=== PATIENT | female | born 1930 | race Caucasian/White ===

== ENCOUNTER 2017-05-31 05:15 | Inpatient (IN) | payer MEDICARE, OTHER ==
[2017-05-31] MEDS ORDERED: MORPHINE SULFATE 10 MG/ML SYRINGE IM STA (06:20)
--- NOTE | 2017-05-31 06:23 | ED ---
General Adult HPI - General Source: patient, EMS, RN notes reviewed Mode of arrival: EMS Limitations: no limitations <Hawk Juarez - Last Filed: 05/31/17 06:20> <Tomas Brannon - Last Filed: 05/31/17 08:45> - General Chief complaint: Extremity Problem,Nontraumatic Stated complaint: wrist and hip pain Time Seen by Provider: 05/31/17 06:05 - History of Present Illness Initial comments: Patient is a pleasant 87-year-old female presenting to the emergency department with leg and wrist pain. Patient states she has had right wrist pain for well over a month. Patient states she has had left leg pain for several days. Patient does have a history of chronic back pain and has had 2 back surgeries. Patient does not walk. Patient states discomfort starts the left sciatic region and does extend to the leg. Discomfort increases with movement. No leg swelling. Patient did see her doctor who attributed her symptoms to gout. Patient states she does have a history of gout. (Hawk Juarez) - Related Data Home Medications Medication Instructions Recorded Confirmed Alendronate Sodium [Fosamax] 70 mg PO WEEKLY 03/04/14 07/01/15 Aspirin 81 mg PO DAILY 03/04/14 07/01/15 Calcium 1 tab PO DAILY 03/04/14 07/01/15 Clopidogrel [Plavix] 75 mg PO DAILY 03/04/14 07/01/15 Docusate Sodium [Stool Softener] 100 mg PO DAILY 03/04/14 07/01/15 Furosemide [Lasix] 40 mg PO BID 03/04/14 07/01/15 Gabapentin [Neurontin] 600 mg PO BID 03/04/14 07/01/15 Hydrocodone/Acetaminophen [Vicodin 1 each PO Q8HR PRN 03/04/14 07/01/15 Es 7.5-300 mg Tablet] Nitroglycerin Sl Tabs [Nitrostat] 0.4 mg SUBLINGUAL Q5M PRN 03/04/14 07/01/15 Potassium Chloride [Potassium 20 meq PO DAILY 03/04/14 07/01/15 Chloride ER] Ramelteon [Rozerem] 8 mg PO HS PRN 03/04/14 07/01/15 Ranitidine HCl 150 mg PO BID 03/04/14 07/01/15 Simvastatin [Zocor] 40 mg PO HS 03/04/14 07/01/15 Spironolactone [Aldactone] 25 mg PO DAILY 03/04/14 07/01/15 Temazepam [Restoril] 7.5 mg PO HS PRN 03/04/14 07/01/15 rOPINIRole HCL [Requip] 4 mg PO HS 03/04/14 07/01/15 Allergies Allergy/AdvReac Type Severity Reaction Status Date / Time Iodinated Contrast- Oral and Allergy Rash/Hives Verified 07/01/15 10:00 IV Dye [Iodinated Contrast Media - IV Dye] Sulfa (Sulfonamide Allergy Rash/Hives Verified 07/01/15 10:00 Antibiotics) Review of Systems ROS Other: All systems not noted in ROS Statement are negative. Constitutional: Denies: fever Eyes: Denies: eye pain ENT: Denies: ear pain Respiratory: Denies: cough Cardiovascular: Denies: chest pain Endocrine: Denies: fatigue Gastrointestinal: Denies: abdominal pain Genitourinary: Denies: dysuria Musculoskeletal: Reports: back pain, arthralgia Skin: Denies: rash Neurological: Denies: weakness <Hawk Juarez - Last Filed: 05/31/17 06:20> ROS Other: All systems not noted in ROS Statement are negative. <Tomas Brannon - Last Filed: 05/31/17 08:45> ROS Statement: Those systems with pertinent positive or pertinent negative responses have been documented in the HPI. Past Medical History Past Medical History: Chest Pain / Angina, Heart Failure, Hyperlipidemia, Hypertension, Myocardial Infarction ([place]), Skin Disorder, Vascular Disorder Additional Past Medical History / Comment(s): wound lt leg, arthritis, gout. Last Myocardial Infarction Date:: 2006 History of Any Multi-Drug Resistant Organisms: MRSA Date of last positivie culture/infection: 03/04/2014 MDRO Source:: Right Leg Past Surgical History: Back Surgery, Bladder Surgery, Heart Catheterization With Stent, Hysterectomy Past Anesthesia/Blood Transfusion Reactions: No Reported Reaction Date of Last Stent Placement:: 2006 Past Psychological History: No Psychological Hx Reported Smoking Status: Never smoker Past Alcohol Use History: None Reported Past Drug Use History: None Reported - Past Family History Mother Family Medical History: Hypertension, Liver Disease Father Family Medical History: Diabetes Mellitus Brother(s) Family Medical History: Cancer <Hawk Juarez - Last Filed: 05/31/17 06:20> General Exam Limitations: no limitations General appearance: alert, in no apparent distress Head exam: Present: atraumatic Eye exam: Present: normal appearance, PERRL ENT exam: Present: normal oropharynx Neck exam: Present: normal inspection Respiratory exam: Present: normal lung sounds bilaterally Cardiovascular Exam: Present: regular rate, normal rhythm Expanded Peripheral pulses: 2+: Radial (R), Radial (L), Dorsalis Pedis (R), Dorsalis Pedis (L) GI/Abdominal exam: Present: soft. Absent: tenderness Extremities exam: Present: other (Right foot are wrist with mildly tender cystic lesion subcutaneously. Left leg without tenderness. ) Back exam: Present: tenderness (Left sciatic region) Neurological exam: Present: alert. Absent: motor sensory deficit Psychiatric exam: Present: normal affect, normal mood Skin exam: Absent: rash (No rash on areas of complaints) <Hawk Juarez - Last Filed: 05/31/17 06:20> Medical Decision Making <Hawk Juarez - Last Filed: 05/31/17 06:20> - Lab Data Result diagrams: 05/31/17 08:06 05/31/17 08:06 <Tomas Brannon - Last Filed: 05/31/17 08:45> - Medical Decision Making 87-year-old female presents with low back and left hip pain. Patient was reevaluated times signed out. She did have continued pain. X-rays were pending. She reports sudden onset of pain when transferring from her wheelchair to her wheelchair. She does not inability blood transfers without assistance. X-ray shows concern for bilateral sacral fractures. There is significant generation of the left hip as well with no acute fracture. Case is discussed with orthopedic surgery, they recommended medical admission and will be placed on consult. Diagnosis: Bilateral sacral fracture (Tomas Brannon) - Lab Data Lab Results 05/31/17 05/31/17 Range/Units 08:06 08:06 WBC 6.9 (3.8-10.6) k/uL RBC 3.17 L (3.80-5.40) m/uL Hgb 9.8 L (11.4-16.0) gm/dL Hct 30.8 L (34.0-46.0) % MCV 97.3 (80.0-100.0) fL MCH 30.9 (25.0-35.0) pg MCHC 31.8 (31.0-37.0) g/dL RDW 15.3 (11.5-15.5) % Plt Count 223 (150-450) k/uL Neutrophils % 75 % Lymphocytes % 13 % Monocytes % 6 % Eosinophils % 3 % Basophils % 1 % Neutrophils # 5.2 (1.3-7.7) k/uL Lymphocytes # 0.9 L (1.0-4.8) k/uL Monocytes # 0.4 (0-1.0) k/uL Eosinophils # 0.2 (0-0.7) k/uL Basophils # 0.0 (0-0.2) k/uL Sodium 143 (137-145) mmol/L Potassium 3.5 (3.5-5.1) mmol/L Chloride 105 (98-107) mmol/L Carbon Dioxide 29 (22-30) mmol/L Anion Gap 9 mmol/L BUN 39 H (7-17) mg/dL Creatinine 1.60 H (0.52-1.04) mg/dL Est GFR (MDRD) Af Amer 37 (>60 ml/min/1.73 sqM) Est GFR (MDRD) Non-Af 31 (>60 ml/min/1.73 sqM) Glucose 91 (74-99) mg/dL Calcium 9.0 (8.4-10.2) mg/dL Total Bilirubin 0.4 (0.2-1.3) mg/dL AST 18 (14-36) U/L ALT 23 (9-52) U/L Alkaline Phosphatase 73 (38-126) U/L Total Protein 6.6 (6.3-8.2) g/dL Albumin 3.3 L (3.5-5.0) g/dL Disposition <Hawk Juarez - Last Filed: 05/31/17 06:20> Decision to Admit Reason: Admit from EC Decision Date: 05/31/17 Decision Time: 08:15 <Tomas Brannon - Last Filed: 05/31/17 08:45> Clinical Impression: Sacral fracture Disposition: ADMITTED IP TO THIS [facility] Condition: Stable Referrals: Von Carter DO [Primary Care Provider] - 1-2 days
--- NOTE | 2017-05-31 07:05 | XR ---
EXAMINATION TYPE: XR lumbar spine 2 or 3V DATE OF EXAM: 05/31/2017 CLINICAL HISTORY: Lower back pain TECHNIQUE: Frontal, lateral, and oblique images of the lumbar spine are obtained. COMPARISON: 01/04/2011 FINDINGS: There is again postsurgical change at L4 and L5 with grade 1 anterolisthesis of L4 on L5, unchanged from the prior intervertebral disc cages noted at L5-S1. There are either 4 lumbar type darline tebral bodies or rudimentary ribs from L1. Grade 1 anterolisthesis of L3 on L4 is also unchanged from the prior exam. Severe atherosclerosis is seen of the abdominal aorta and its branches with ectasia of the abdominal aorta measuring up to 3.2 cm. Severe facet arthropathy is present at L2-L3 and L3-L4 as well as L5-S1 creating neural foraminal narrowing at L2-L3 and L3-L4. Slight downsloping of the T11 superior endpl ate is unchanged from the prior exam with endplate sclerosis. IMPRESSION: 1. No acute fracture or dislocation is seen in the lumbar spine. 2. Stable postsurgical changes of the lumbar spine. 3. Severe degenerative disc disease at L2-L3 and L3-L4 with resultant neural foraminal narrowing. 4. Grade 1 anterolisthesis of L3 on L4 and L4-L5, unchanged from the prior. 5. Abdominal aortic ectasia and severe atherosclerosis.
--- NOTE | 2017-05-31 07:08 | XR ---
EXAMINATION TYPE: XR wrist complete RT DATE OF EXAM: 05/31/2017 CLINICAL HISTORY: No known injury. Wrist pain. TECHNIQUE: Frontal, lateral and oblique images of the right wrist are obtained. COMPARISON: None FINDINGS: There is no acute fracture/dislocation evident in the right wrist. The overlying soft tiss ue appears unremarkable. Well-corticated ossicle versus osseous fragment is seen in the region of the triangular fibrocartilage distal to the ulnar styloid. Carpal carpal degenerative change is apprecia polly as severe sclerosis is seen between the distal pole of the scaphoid, trapezium and triquetrum. D egenerative changes also seen at the first carpometacarpal joint also demonstrated as sclerosis and j oint space narrowing. IMPRESSION: 1. There is no acute fracture or dislocation in the right wrist. 2. Moderate carpometacarpal and carpocarpal degenerative changes.
--- NOTE | 2017-05-31 07:08 | XR ---
EXAM: XR Sacrum and Coccyx, 2 or more Views CLINICAL HISTORY: Reason: Pain TECHNIQUE: Frontal and lateral views of the sacrum and coccyx. COMPARISON: No relevant prior studies available. FINDINGS: Sacrum/coccyx: Evidence of fracture involving the sacrum on the right and possibly also on the left. Vertebrae: Please refer to lumbar spine report in regards to lower lumbar spine findings. Soft tissues: Unremarkable. Other bones: The right femoral head is not well visualized and appears to be possibly diminished in size with degenerative changes of the hip. IMPRESSION: Evidence of fracture involving the sacrum on the right and possibly also on the left.
--- NOTE | 2017-05-31 07:59 | XR ---
EXAMINATION TYPE: XR Hip Complete LT DATE OF EXAM: 05/31/2017 CLINICAL HISTORY: Left hip pain without known injury. TECHNIQUE: AP and frogleg views of the left hip are obtained. COMPARISON: None. FINDINGS: There is extension destruction and osseous reabsorption of the left femoral head that may r elate to prior osteotomy or chronic change from arthrosis, infection, or denervation. The remaining f emoral neck appears situated within the acetabulum without dislocation. Remodeling of the acetabulum with ossific bodies in the joint space are noted. No acute fracture is identified. 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 Thi s could be chronic change from arthrosis, infection, or neuropathic joint versus postsurgical change. No gross acute finding.
[2017-05-31 08:15] LABS: Basophils % (A) 1 %; CH 31.4; CHCM 32.5; Eosinophils # (A) 0.2 k/uL (0-0.7); Eosinophils % (A) 3 %; HCT 30.8 % (34.0-46.0); HDW 2.26; HGB 9.8 gm/dL (11.4-16.0); Luc # (Auto) 0.16; Luc % (Auto) 2; Lymphocytes # (A) 0.9 k/uL (1.0-4.8); Lymphocytes % (A) 13 %; MCH 30.9 pg (25.0-35.0); MCHC 31.8 g/dL (31.0-37.0); MCV 97.3 fL (80.0-100.0); Mean Platelet Volume 7.8; Monocytes # (A) 0.4 k/uL (0-1.0); Monocytes % (A) 6 %; Neutrophils # (A) 5.2 k/uL (1.3-7.7); Neutrophils % (A) 75 %; RBC 3.17 m/uL (3.80-5.40); RDW 15.3 % (11.5-15.5); WBC 6.9 k/uL (3.8-10.6); WBC (Perox) 6.56
[2017-05-31 08:26] LABS: Potassium 3.5 mmol/L (3.5-5.1); Total Bilirubin 0.4 mg/dL (0.2-1.3); Total Protein 6.6 g/dL (6.3-8.2)
[2017-05-31] MEDS ORDERED: oxyCODONE-APAP 5-325MG 1 EACH TAB PO PRN (08:33)
[2017-05-31] MEDS ORDERED: ONDANSETRON 4 MG/2 ML VIAL IVP PRN (08:39)
[2017-05-31] MEDS ORDERED: NALOXONE 0.4 MG/ML 1 ML VIAL IV PRN (08:42)
[2017-05-31] MEDS ORDERED: ENOXAPARIN 40 MG/0.4 ML SYRINGE SQ SCH (09:15)
[2017-05-31] MEDS: SODIUM CHLORIDE 0.9% 1,000 ML IV SCH (09:16)
[2017-05-31 09:18] LABS: INR 1.1 (<1.2); Prothrombin Time 11.3 sec (9.0-12.0)
[2017-05-31 09:21] LABS: Appearance,Urine Cloudy (Clear); Bacteria,Urine Many /hpf; Bilirubin,Urine Negative (Negative); Glucose,Urine (UA) Negative (Negative); Ketones,Urine Negative (Negative); Leukocyte Esterase,Urine Large (Negative); Nitrite,Urine Positive (Negative); PH, Urine 5.5 (5.0-8.0); Particle Count 9496; Protein,Urine Negative (Negative); RBC,Urine 1 /hpf (0-5); Specific Gravity,Urine 1.014 (1.001-1.035); Squamous Epithelial Cell,Urine 1 /hpf (0-4); UA Billing (MACRO vs. MICRO) MICRO; Urobilinogen,Urine <2.0 mg/dL (<2.0); WBC,Urine 17 /hpf (0-5)
[2017-05-31] MEDS ORDERED: NITROGLYCERIN SL TABS 0.4 MG TAB SUBLINGUAL PRN (12:10)
--- NOTE | 2017-05-31 12:43 | P.HPIM ---
History of Present Illness H&P Date: 05/31/17 Chief Complaint: left hip pain Patient is [id number] female with a past medical history of congestive heart failure, coronary artery disease status post stenting, and dyslipidemia who presented with complaints of left hip pain. She states that she has been having pain for several weeks. Yesterday she was trying to transfer into her wheelchair and was unable to her hip down on the floor and felt a pop. Today her pain was worse so she decided to present to the emergency department. She also has been complaining of right wrist pain for the last 2 weeks. Both the hips and wrist pain are worse with movement and better with rest. She has not tried anything at home that has helped. She is mostly in a wheel chair and transfers herself only. She does live alone. She has had some decreased appetite and weight loss. She also reports cold intolerance. She has not been sick or ill at all recently and has not had any changes in her medications. In the emergency department she underwent an extensive evaluation. Her initial vital signs were within normal limits. Laboratory analysis showed a slight anemia and elevated creatinine. She was given pain control started on IV fluids. She was admitted to the general medical floor for further monitoring and care. Orthopedic surgery was consulted. Review of Systems General: [no fever/chills], [no rigors], + weight loss, + decreased appetite Eyes: [No double vision], [no unusual blurry vision], [no loss of vision] ENT: [No rhinorrhea, congestion], [no trush] Cardiovascular: [No chest pain], [no palpitations], [no syncope], [no edema], [ Noo paroxysmal nocturnal dyspnea], [No dizziness] Pulmonary: [No shortness of breath], [no wheezing], [no cough], [hemoptysis] Abdominal: [No abdominal pain], [no constipation], [no diarrhea], [no vomiting] , [no nausea], [no distention] Genitourinary: [No dysuria], [no urinary frequency], [ no hematuria], [no unusual discharge/odor] Neuro: [No unusual paresthesias], [no unusual paresis/paralysis], [no headache] Dermatologic: [No unusual rashes], [no unusual lesions], [no unusual changes in nails] Endocrinology: [No intolerance to heat/cold], [no excessive thirst],] [no unusual fatigue] Hematologic: [No unusual bruising or bleeding], [no unusual cervical lymphadenopathy] Psychiatric: [No changes in mood or behaviors], [no changes in sleep pattern] Musculoskeletal: + Left leg pain, + right wrist pain, + wheelchair-bound for 16 years Past Medical History Past Medical History: Coronary Artery Disease (CAD), Chest Pain / Angina, Heart Failure, GERD/Reflux, Hyperlipidemia, Myocardial Infarction ([place]), Osteoarthritis (OA), Renal Disease, Vascular Disorder Additional Past Medical History / Comment(s): Chronic back pain, DJD, gout, PVD , current and past ulcers to L/R lower legs, CKD, UTIs, PUD, RLS, past fractures to L shoulder, numbness/tingling bilateral feet/legs at times. Last Myocardial Infarction Date:: 2006 History of Any Multi-Drug Resistant Organisms: MRSA Date of last positivie culture/infection: 03/04/2014 MDRO Source:: Right Leg Past Surgical History: Back Surgery, Bladder Surgery, Heart Catheterization With Stent, Hysterectomy Additional Past Surgical History / Comment(s): Back surgery x2, bladder suspension, debridements L lower leg, cataract removal bilaterally, EGD/ colonoscopy. Past Anesthesia/Blood Transfusion Reactions: No Reported Reaction Date of Last Stent Placement:: 2006 Smoking Status: Never smoker Past Alcohol Use History: None Reported Past Drug Use History: None Reported - Past Family History Mother Family Medical History: Hypertension Father Family Medical History: Diabetes Mellitus Brother(s) Family Medical History: Cancer Medications and Allergies Home Medications Medication Instructions Recorded Confirmed Type Alendronate Sodium [Fosamax] 70 mg PO WEEKLY 03/04/14 05/31/17 History Aspirin 81 mg PO DAILY 03/04/14 05/31/17 History Docusate Sodium [Stool Softener] 100 - 200 mg PO HS PRN 03/04/14 05/31/17 History Gabapentin [Neurontin] 600 mg PO BID 03/04/14 05/31/17 History Nitroglycerin Sl Tabs [Nitrostat] 0.4 mg SUBLINGUAL Q5M PRN 03/04/14 05/31/17 History Ammonium Lactate Lotion 1 applic TOPICAL BID PRN 05/31/17 05/31/17 History [Lac-Hydrin 12% Lotion] Calcitriol [Rocaltrol] 0.25 mcg PO DAILY 05/31/17 05/31/17 History Cholecalciferol (Vitamin D3) 2,000 unit PO DAILY 05/31/17 05/31/17 History [Vitamin D3] Furosemide [Lasix] 40 mg PO DAILY@1500 05/31/17 05/31/17 History Furosemide [Lasix] 80 mg PO DAILY 05/31/17 05/31/17 History HYDROcodone/APAP 7.5-325MG [Poyntelle 1 tab PO TID PRN 05/31/17 05/31/17 History 7.5-325] Levothyroxine Sodium [Levoxyl] 25 mcg PO DAILY 05/31/17 05/31/17 History Potassium Chloride ER [K-Dur 10] 10 meq PO DAILY 05/31/17 05/31/17 History traMADol HCL [Ultram] 50 mg PO Q6HR PRN 05/31/17 05/31/17 History Allergies Allergy/AdvReac Type Severity Reaction Status Date / Time Iodinated Contrast- Oral and Allergy Rash/Hives Verified 05/31/17 08:58 IV Dye [Iodinated Contrast Media - IV Dye] Sulfa (Sulfonamide Allergy Rash/Hives Verified 05/31/17 08:58 Antibiotics) Physical Exam Osteopathic Statement: *. No significant issues noted on an osteopathic structural exam other than those noted in the History and Physical/Consult. Vitals: Vital Signs Temp Pulse Pulse Resp BP BP Pulse Ox 05/31/17 10:00 96.5 F L 63 16 105/59 98 05/31/17 09:00 71 18 132/59 96 05/31/17 07:01 64 16 128/58 96 05/31/17 05:17 97.7 F 73 15 134/62 97 Intake and Output 05/30/17 05/31/17 05/31/17 22:59 06:59 14:59 Other: Weight 72.575 kg General: non toxic, mild distress, appears at stated age, obese Derm: + Venous stasis changes bilateral lower extremities, +3 ulcers to lateral malleoli on the with dressing in place, no lesions, no ulcers, no unusual ecchymoses Head: atraumatic, normocephalic, symmetric Eyes: EOMI, no lid lag, anicteric sclera, pupils equal round reactive to light ENT: no post nasal drip, no thrush , nearest patent, no pharyngeal erythema Neck: No thyromegaly, no cervical lymphadenopathy, trachea midline, supple Mouth: no lip lesion, mucus membranes moist Cardiovascular: S1S2 reg, no murmur, + decreased posterior tibial pulses bilaterally, no edema , no JVD, no clubbing, no cyanosis, capillary refill less than 2 seconds Lungs: CTA bilateral, no rhonchi, no rales , no accessory muscle use Abdominal: soft, nontender to palpation, no guarding, no appreciable organomegaly, normal bowel sounds Ext: no gross muscle atrophy, muscle strength 5 out of 5 in bilateral upper extremities, 2-3 out of 5 in bilateral lower extremities, no pain to palpation of bilateral hips, no contractures, Neuro: CN II-XI grossly intact, light touch intact all 4 extremities, finger to nose within normal limits, Psych: Alert, oriented, appropriate affect Results CBC & Chem 7: 05/31/17 08:06 05/31/17 08:06 Labs: Abnormal Lab Results - Last 24 Hours (Table) 05/31/17 05/31/17 05/31/17 Range/Units 08:06 08:06 09:10 RBC 3.17 L (3.80-5.40) m/uL Hgb 9.8 L (11.4-16.0) gm/dL Hct 30.8 L (34.0-46.0) % Lymphocytes # 0.9 L (1.0-4.8) k/uL BUN 39 H (7-17) mg/dL Creatinine 1.60 H (0.52-1.04) mg/dL Albumin 3.3 L (3.5-5.0) g/dL Urine Appearance Cloudy H (Clear) Urine Blood Trace H (Negative) Urine Nitrite Positive H (Negative) Ur Leukocyte Esterase Large H (Negative) Urine WBC 17 H (0-5) /hpf Urine WBC Clumps Few H (None) /hpf Urine Bacteria Many H (None) /hpf Thrombosis Risk Factor Assmnt - DVT/VTE Prophylaxis DVT/VTE Prophylaxis: Pharmacologic Prophylaxis ordered - Choose All That Apply Any of the Below Risk Factors Present?: Yes Each Factor Represents 1 point: Medical pt on bed rest, Obesity (BMI >25) Other Risk Factors: Yes Each Risk Factor Represents 3 Points: Age 75 years or older Other congenital or acquired thrombophilia - If yes, enter type in comment: No Thrombosis Risk Factor Assessment Total Risk Factor Score: 5 Thrombosis Risk Factor Assessment Level: High Risk Assessment and Plan Plan: #Right sacral fracture-await orthopedic evaluation, pain control, bed rest until cleared by otyho, PT and OT once weightbearing status approved, suspect that patient will need to go to rehab to help with transfers. #Acute kidney injury on chronic kidney disease stage III-baseline creatinine appears to be 1.2, hold Lasix, gentle IV fluids, follow creatinine, additional nephrotoxic agents #Anemia, chronic-appears at baseline, follow CBC #Congestive heart failure, unknown ejection fraction-appears currently compensated, not chronically on beta mely or NORIS inhibitor and we'll not initiate, follow clinical status closely with Lasix being held and gentle IV fluids being given. #Hypothyroidism-continue Synthroid #Atherosclerotic coronary artery disease-continue aspirin, not chronically on statin therapy #Venous stasis ulcer of left lower extremity-wound care, frequent turns Surrogate decision-maker: Granddaughter Lexy CODE STATUS: Full DVT prophylaxis: Lovenox Discussed with: Patient, nursing, ER physician Anticipated discharge: 48-[address]: Rehabilitation A total of 45 minutes was spent on the care of this complex patient more than 50 % of the time was spent in counseling and care coordination.
[2017-05-31] MEDS: HYDROcodone/APAP 7.5-325MG 1 EACH TAB PO PRN (13:50)
[2017-05-31] MEDS: GABAPENTIN 300 MG CAP PO SCH (21:53)
[2017-05-31] MEDS: AMMONIUM LACTATE 12% LOTION 225 GM BTL TOPICAL PRN (23:18)
[2017-06-01] MEDS: LEVOTHYROXINE 25 MCG TAB PO SCH (06:11)
[2017-06-01] MEDS: SODIUM CHLORIDE 0.9% 1,000 ML IV SCH (06:11)
[2017-06-01] MEDS: HYDROcodone/APAP 7.5-325MG 1 EACH TAB PO PRN (06:11)
[2017-06-01 07:33] LABS: Basophils % (A) 0 %; CH 31.1; CHCM 31.8; Eosinophils # (A) 0.2 k/uL (0-0.7); Eosinophils % (A) 4 %; HCT 29.7 % (34.0-46.0); HDW 2.26; HGB 9.3 gm/dL (11.4-16.0); Luc # (Auto) 0.15; Luc % (Auto) 3; Lymphocytes # (A) 0.8 k/uL (1.0-4.8); Lymphocytes % (A) 13 %; MCH 30.7 pg (25.0-35.0); MCHC 31.3 g/dL (31.0-37.0); MCV 98.1 fL (80.0-100.0); Macrocytosis Slight; Mean Platelet Volume 7.3; Monocytes # (A) 0.6 k/uL (0-1.0); Monocytes % (A) 11 %; Neutrophils # (A) 3.9 k/uL (1.3-7.7); Neutrophils % (A) 70 %; RBC 3.03 m/uL (3.80-5.40); RDW 15.3 % (11.5-15.5); WBC 5.6 k/uL (3.8-10.6); WBC (Perox) 5.64
[2017-06-01 07:53] LABS: Calcium 8.4 mg/dL (8.4-10.2); Magnesium 1.9 mg/dL (1.6-2.3); Phosphorous 3.4 mg/dL (2.5-4.5); Potassium 3.7 mmol/L (3.5-5.1)
[2017-06-01] MEDS: GABAPENTIN 300 MG CAP PO SCH ×2 (09:13→22:03)
[2017-06-01] MEDS: CHOLECALCIFEROL 1,000 UNIT TAB PO SCH (09:13)
[2017-06-01] MEDS: ASPIRIN 81 MG CHEW PO SCH (09:13)
[2017-06-01] MEDS: ENOXAPARIN 30 MG/0.3 ML SYRINGE SQ SCH (09:14)
[2017-06-01] MEDS: CALCITRIOL 0.25 MCG CAP PO SCH (09:14)
[2017-06-01] MEDS: traMADol 50 MG TAB PO PRN (09:19)
--- NOTE | 2017-06-01 09:47 | XR ---
EXAMINATION TYPE: XR chest 1V portable DATE OF EXAM: 06/01/2017 COMPARISON: 02/02/2014 HISTORY: Pain TECHNIQUE: Single frontal view of the chest is obtained. FINDINGS: Marked deformity of the right shoulder is most likely the basis of previous arthropathy tr auma. Chronic appearing subluxation or dislocation Retrocardiac density noted which may related ectasia of the aorta. No pleural effusion, pneumothorax or overt failure. Right paratracheal fullness likely vascular. Related to patient rotation. IMPRESSION: 1. No definite acute process. Retrocardiac density most likely related to hiatal hernia rather than i nfiltrate short-term follow-up PA and lateral views of the chest could be obtained for confirmation.
--- NOTE | 2017-06-01 10:22 | P.CNOR ---
History of Present Illness - HPI Consult date: 06/01/17 Consult reason: fracture, low back pain History of present illness: The patient is a pleasant 87-year-old female who was transferring yesterday and her pop at her lower back. She is a nonambulator and uses an electric wheelchair. She is normally able to transfer on her own. She's been using a chair for several years. She says that the pain is primarily at her lower back toward her sacrum. She is not having any new changes in her lower extremities. She denies any fevers or chills. She says that she occasionally has some low back pain but this is somewhat different for her. She says she is not painful she is sitting or while in bed. But she has pain when she is trying to mobilize and transfer herself. Review of Systems As stated per HPI. She denies any new changes in the lower extremities. She has significant wound issues in vascular issues in her bilateral lower extremities for which she is getting at active wound care and treatment and lower extremity is. Apparently she's been advised to remain nonweightbearing on her bilateral lower extremity is due to her wounds. She normally uses an electric wheelchair but says she is normally able to transfer herself. Past Medical History Past Medical History: Coronary Artery Disease (CAD), Chest Pain / Angina, Heart Failure, GERD/Reflux, Hyperlipidemia, Myocardial Infarction (LA), Osteoarthritis (OA), Renal Disease, Vascular Disorder Additional Past Medical History / Comment(s): Chronic back pain, DJD, gout, PVD , current and past ulcers to L/R lower legs, CKD, UTIs, PUD, RLS, past fractures to L shoulder, numbness/tingling bilateral feet/legs at times. Last Myocardial Infarction Date:: 2006 History of Any Multi-Drug Resistant Organisms: MRSA Year Discovered:: 03/04/2014 MDRO Source:: Right Leg Past Surgical History: Back Surgery, Bladder Surgery, Heart Catheterization With Stent, Hysterectomy Additional Past Surgical History / Comment(s): Back surgery x2, bladder suspension, debridements L lower leg, cataract removal bilaterally, EGD/ colonoscopy. Past Anesthesia/Blood Transfusion Reactions: No Reported Reaction Date of Last Stent Placement:: 2006 Smoking Status: Never smoker Past Alcohol Use History: None Reported Past Drug Use History: None Reported - Past Family History Mother Family Medical History: Hypertension Father Family Medical History: Diabetes Mellitus Brother(s) Family Medical History: Cancer Medications and Allergies Home Medications Medication Instructions Recorded Confirmed Type Alendronate Sodium [Fosamax] 70 mg PO WEEKLY 03/04/14 05/31/17 History Aspirin 81 mg PO DAILY 03/04/14 05/31/17 History Docusate Sodium [Stool Softener] 100 - 200 mg PO HS PRN 03/04/14 05/31/17 History Gabapentin [Neurontin] 600 mg PO BID 03/04/14 05/31/17 History Nitroglycerin Sl Tabs [Nitrostat] 0.4 mg SUBLINGUAL Q5M PRN 03/04/14 05/31/17 History Ammonium Lactate Lotion 1 applic TOPICAL BID PRN 05/31/17 05/31/17 History [Lac-Hydrin 12% Lotion] Calcitriol [Rocaltrol] 0.25 mcg PO DAILY 05/31/17 05/31/17 History Cholecalciferol (Vitamin D3) 2,000 unit PO DAILY 05/31/17 05/31/17 History [Vitamin D3] Furosemide [Lasix] 40 mg PO DAILY@1500 05/31/17 05/31/17 History Furosemide [Lasix] 80 mg PO DAILY 05/31/17 05/31/17 History HYDROcodone/APAP 7.5-325MG [[facility] 1 tab PO TID PRN 05/31/17 05/31/17 History 7.5-325] Levothyroxine Sodium [Levoxyl] 25 mcg PO DAILY 05/31/17 05/31/17 History Potassium Chloride ER [K-Dur 10] 10 meq PO DAILY 05/31/17 05/31/17 History traMADol HCL [Ultram] 50 mg PO Q6HR PRN 05/31/17 05/31/17 History Allergies Allergy/AdvReac Type Severity Reaction Status Date / Time Iodinated Contrast- Oral and Allergy Rash/Hives Verified 05/31/17 08:58 IV Dye [Iodinated Contrast Media - IV Dye] Sulfa (Sulfonamide Allergy Rash/Hives Verified 05/31/17 08:58 Antibiotics) Physical Examination Osteopathic Statement: *. No significant issues noted on an osteopathic structural exam other than those noted in the History and Physical/Consult. - L Spine: dermatomal strength & reflexes bilateral Strength: hip flexion: 4/5 (Lower extremities have diffuse weakness about 4 out of 5 strength to dorsiflexion and hip flexion the extension. His dressings intact to bilateral lower extremities which are appropriate for her. She has some diminished vascularity at her lower extremity is. Her thighs are soft and nontender hips are nontender to palpation and range of motion no pain with internal and external rotation. Her pelvis is stable to rock anteriorly. But she does have some tenderness to palpation over her sacrum posteriorly. Her low back has some tenderness to palpation of the lower lumbar spine. Her thoracic and cervical spine are nontender to palpation range of motion. She has good excursion with deep inspiration and expiration. Her upper extremities have good motion. She has some tenderness at her right hand over her right thumb which is chronic for her. Her neck is nontender to palpation and range of motion.) Results - Labs Labs: Abnormal Lab Results - Last 24 Hours (Table) 06/01/17 06/01/17 Range/Units 07:16 07:16 RBC 3.03 L (3.80-5.40) m/uL Hgb 9.3 L (11.4-16.0) gm/dL Hct 29.7 L (34.0-46.0) % Lymphocytes # 0.8 L (1.0-4.8) k/uL BUN 34 H (7-17) mg/dL Creatinine 1.43 H (0.52-1.04) mg/dL H & H 05/31/17 06/01/17 Range/Units 08:06 07:16 Hgb 9.8 L 9.3 L (11.4-16.0) gm/dL Hct 30.8 L 29.7 L (34.0-46.0) % Coagulation 05/31/17 Range/Units 08:06 INR 1.1 (<1.2) Result Diagrams: 06/01/17 07:16 06/01/17 07:16 - Diagnostic results Lumbar AP/lateral x-ray: report reviewed, image reviewed (At her low back she has prior fusion at L4 5 and L5-S1 which was done at outside institution. The hardware appears to be stable and in an adequate alignment and position. I do not see acute changes in the hardware from L4 to S1. She has some degenerative changes at her upper lumbar spine as well. Her sacrum shows some evidence of fracture particularly on the right side at her sacral ala. It is minimally displaced.) Assessment and Plan Plan: Acute new sacral ala fracture, due to sacral insufficiency History of lumbar chronic pain with history of fusion L4 to S1 which appears stable Bilateral lower extremity vascular disease with chronic ulceration and lower extremities The patient has new injury at her sacrum. She is tolerating the pain adequately while sitting and laying. The best treatment for the sacral injury would be to pursue conservative management with nonweightbearing at her bilateral lower extremity is. She is already doing this given her wound issues at her lower extremities and she already has an electric wheelchair. I like to see if physical therapy is able to help her so that she can mobilize enough to transfer herself to her chair although she may need significant assistance because of her wound issues in her nonweightbearing status at her lower extremities. We do not plan any surgical intervention for her sacrum. This should heal adequately on its own though it may be 6-12 weeks of healing. She'll likely be nonweightbearing on bilateral lower extremities over the next 6 weeks as this heals. I discussed this with her answered her questions best my ability and leg which she can understand and she is agreeable. I would plan to see her back in the office in approximately 3-4 weeks for recheck evaluation and repeat x-rays.
[2017-06-01] MEDS ORDERED: methylPREDNISolone SOD SUCCI 125 MG/2 ML VIAL IV STA (12:07)
--- NOTE | 2017-06-01 16:38 | P.PN ---
Subjective Principal diagnosis: Hip pain right Patient is [id number] female with a past medical history of congestive heart failure, coronary artery disease status post stenting, and dyslipidemia who presented with complaints of left hip pain. In the emergency department she underwent an extensive evaluation. Her initial vital signs were within normal limits. Her x-rays showed a right sacral fracture. Laboratory analysis showed a slight anemia and elevated creatinine. She was given pain control started on IV fluids. She was admitted to the general medical floor for further monitoring and care. Orthopedic surgery was consulted and recommended nonweightbearing status for 6-12 weeks with outpatient follow-up. Physical therapy consultation was pending at the time of my exam. Patient seen and examined at bedside. She complains of pain when trying to move. She denies any chest pain, shortness of breath, nausea, vomiting. She is afraid she'll not be able to transfer on her own with her nonweightbearing status. We discussed possibility of needing subacute rehabilitation on discharge. Objective - Vital Signs Vital signs: Vital Signs Temp 101.6 F H 06/01/17 14:46 Pulse 82 06/01/17 14:46 Resp 18 06/01/17 15:08 BP 107/50 06/01/17 14:46 Pulse Ox 94 L 06/01/17 14:46 Intake & Output 05/31/17 06/01/17 06/01/17 18:59 06:59 18:59 Intake Total 600 Output Total 1800 275 Balance -1200 -275 Weight 72.575 kg Intake: Oral 600 Output: Urine 1800 275 Uretheral (Flowers) 600 Other: Voiding Method Indwelling Catheter Indwelling Catheter Indwelling Catheter # Voids 1 # Bowel Movements 0 - Exam General: non toxic, no distress, appears at stated age Derm: no rashes, no lesions, dressings bilateral lower extremities Head: atraumatic, normocephalic, symmetric Eyes: EOMI, no lid lag, anicteric sclera ENT: no post nasal drip, no thrush Mouth: no lip lesion, mucus membranes moist Cardiovascular: S1S2 reg, no murmur, positive posterior tibial pulse bilateral, Lungs: dereased bs b/l bases, no rhonchi, no rales , no accessory muscle use Abdominal: soft, nontender to palpation, no guarding, no appreciable organomegaly Ext: no gross muscle atrophy, no edema, no contractures Neuro: CN II-XI grossly intact, no focal neuro deficits Psych: Alert, oriented, appropriate affect - Labs CBC & Chem 7: 06/01/17 07:16 06/01/17 07:16 Labs: Abnormal Lab Results - Last 24 Hours (Table) 06/01/17 06/01/17 Range/Units 07:16 07:16 RBC 3.03 L (3.80-5.40) m/uL Hgb 9.3 L (11.4-16.0) gm/dL Hct 29.7 L (34.0-46.0) % Lymphocytes # 0.8 L (1.0-4.8) k/uL BUN 34 H (7-17) mg/dL Creatinine 1.43 H (0.52-1.04) mg/dL Assessment and Plan Plan: #Right sacral nonweightbearing status for 6-12 weeks, outpatient orthopedic surgery follow-up, pain control, PT recommendations, suspect that patient will need to go to rehab to help with transfers. #Fevers-chest x-ray ordered, urinalysis negative on admission, incentive spirometer- CXR revealed possible PNA start rocephin and zithromax #Acute kidney injury on chronic kidney disease stage III-baseline creatinine appears to be 1.2, hold Lasix, gentle IV fluids, follow creatinine, additional nephrotoxic agents #Anemia, chronic-appears at baseline, follow CBC #Congestive heart failure, unknown ejection fraction-appears currently compensated, not chronically on beta mely or NORIS inhibitor and we'll not initiate, follow clinical status closely with Lasix being held and gentle IV fluids being given. #Hypothyroidism-continue Synthroid #Atherosclerotic coronary artery disease-continue aspirin, not chronically on statin therapy #Venous stasis ulcer of left lower extremity-wound care, frequent turns Surrogate decision-maker: Granddaughter Lexy CODE STATUS: Full DVT prophylaxis: Lovenox Discussed with: Patient, nursing, ER physician Anticipated discharge: 48-[address]: Rehabilitation A total of 45 minutes was spent on the care of this complex patient more than 50 % of the time was spent in counseling and care coordination.
[2017-06-01] MEDS: AZITHROMYCIN 500 MG in SODIUM CHLORIDE 0.9% 250 ML IVPB SCH (17:26)
[2017-06-02] MEDS: SODIUM CHLORIDE 0.9% 1,000 ML IV SCH ×2 (04:59→11:30)
[2017-06-02] MEDS: LEVOTHYROXINE 25 MCG TAB PO SCH (05:42)
[2017-06-02 07:58] LABS: CH 31.3; CHCM 32.3; HCT 28.8 % (34.0-46.0); HDW 2.29; HGB 9.2 gm/dL (11.4-16.0); MCHC 31.8 g/dL (31.0-37.0); MCV 97.4 fL (80.0-100.0); Mean Platelet Volume 7.6; RBC 2.96 m/uL (3.80-5.40); RDW 15.5 % (11.5-15.5); WBC 8.9 k/uL (3.8-10.6)
[2017-06-02 08:07] LABS: Calcium 8.6 mg/dL (8.4-10.2); Potassium 4.1 mmol/L (3.5-5.1)
[2017-06-02] MEDS: ACETAMINOPHEN TAB 325 MG TAB PO PRN (08:11)
[2017-06-02] MEDS: GABAPENTIN 300 MG CAP PO SCH ×2 (08:11→20:42)
[2017-06-02] MEDS: ASPIRIN 81 MG CHEW PO SCH (08:12)
[2017-06-02] MEDS: CHOLECALCIFEROL 1,000 UNIT TAB PO SCH (08:12)
[2017-06-02] MEDS: CALCITRIOL 0.25 MCG CAP PO SCH (08:12)
[2017-06-02] MEDS: ENOXAPARIN 30 MG/0.3 ML SYRINGE SQ SCH (08:12)
[2017-06-02] MEDS: AZITHROMYCIN 500 MG in SODIUM CHLORIDE 0.9% 250 ML IVPB SCH (10:15)
[2017-06-02] MEDS: AMMONIUM LACTATE 12% LOTION 225 GM BTL TOPICAL PRN (11:30)
--- NOTE | 2017-06-02 15:39 | P.PN ---
Subjective Principal diagnosis: Hip pain right Patient is [id number]-bor female with a past medical history of congestive heart failure, coronary artery disease status post stenting, and dyslipidemia who presented with complaints of left hip pain. In the emergency department she underwent an extensive evaluation. Her initial vital signs were within normal limits. Her x-rays showed a right sacral fracture. Laboratory analysis showed a slight anemia and elevated creatinine. She was given pain control started on IV fluids. She was admitted to the general medical floor for further monitoring and care. Orthopedic surgery was consulted and recommended nonweightbearing status for 6-12 weeks with outpatient follow-up. She developed a fever and was started on treatment for pneumonia. Physical therapy consultation is pending. Patient seen and examined at bedside. Her wrist pain is resolved. She has not had a bowel movement since admission. No chest pain or shortness of breath, nausea, vomiting, or diarrhea. She has not had a chance to work with physical therapy. No other complaints currently. She is unsure whether her sister-in- law will be able to help her at home with her nonweightbearing status transferring or not. Objective - Vital Signs Vital signs: Vital Signs Temp 99.0 F 06/02/17 11:30 Pulse 69 06/02/17 06:07 Resp 20 06/02/17 06:07 BP 106/55 06/02/17 06:07 Pulse Ox 93 L 06/02/17 06:07 Intake & Output 06/01/17 06/02/17 06/02/17 18:59 06:59 18:59 Intake Total 300 Output Total 275 800 Balance -275 -500 Weight 76.884 kg Intake: Oral 300 Output: Urine 275 800 Uretheral (Flowers) 400 Other: Voiding Method Indwelling Catheter Indwelling Catheter - Exam General: non toxic, no distress, appears at stated age Derm: no rashes, no lesions, dressings left LE, right ankle with skin sloughing only. Head: atraumatic, normocephalic, symmetric Eyes: EOMI, no lid lag, anicteric sclera ENT: no post nasal drip, no thrush Mouth: no lip lesion, mucus membranes moist Cardiovascular: S1S2 reg, no murmur, positive posterior tibial pulse bilateral, Lungs: dereased bs b/l bases, no rhonchi, no rales , no accessory muscle use Abdominal: soft, nontender to palpation, no guarding, no appreciable organomegaly Ext: no gross muscle atrophy, no edema, no contractures Neuro: CN II-XI grossly intact, no focal neuro deficits Psych: Alert, oriented, appropriate affect - Labs CBC & Chem 7: 06/02/17 07:35 06/02/17 07:35 Labs: Abnormal Lab Results - Last 24 Hours (Table) 06/02/17 06/02/17 Range/Units 07:35 07:35 RBC 2.96 L (3.80-5.40) m/uL Hgb 9.2 L (11.4-16.0) gm/dL Hct 28.8 L (34.0-46.0) % Chloride 108 H (98-107) mmol/L BUN 39 H (7-17) mg/dL Creatinine 1.40 H (0.52-1.04) mg/dL Glucose 131 H (74-99) mg/dL Assessment and Plan Plan: #Right sacral nonweightbearing status for 6-12 weeks, outpatient orthopedic surgery follow-up, pain control, PT recommendations, suspect that patient will need to go to rehab to help with transfers. #Pneumonia, [id number] spirometer, Ceftin and Zithromax, repeat chest x-ray #Acute kidney injury on chronic kidney disease stage III-baseline creatinine appears to be 1.2, hold Lasix, stop IV fluids, follow creatinine, additional nephrotoxic agents #Anemia, chronic-appears at baseline, follow CBC #Congestive heart failure, unknown ejection fraction-appears currently compensated, not chronically on beta mely or NORIS inhibitor and we'll not initiate, follow clinical status closely with Lasix being held and gentle IV fluids being given. #Hypothyroidism-continue Synthroid #Atherosclerotic coronary artery disease-continue aspirin, not chronically on statin therapy #Venous stasis ulcer of left lower extremity-wound care, frequent turns Surrogate decision-maker: Granddaughter Lexy CODE STATUS: Full DVT prophylaxis: Lovenox Discussed with: Patient, nursing, ER physician Anticipated discharge: 48-[address]: Rehabilitation A total of 45 minutes was spent on the care of this complex patient more than 50 % of the time was spent in counseling and care coordination.
[2017-06-03] MEDS: LEVOTHYROXINE 25 MCG TAB PO SCH (06:10)
[2017-06-03 09:04] LABS: CH 31.5; HCT 28.7 % (34.0-46.0); HDW 2.26; HGB 8.9 gm/dL (11.4-16.0); MCH 30.6 pg (25.0-35.0); MCHC 30.9 g/dL (31.0-37.0); Macrocytosis Slight; Mean Platelet Volume 8.5; RDW 15.7 % (11.5-15.5); WBC 8.3 k/uL (3.8-10.6)
[2017-06-03 09:30] LABS: Calcium 8.4 mg/dL (8.4-10.2)
[2017-06-03] MEDS: CALCITRIOL 0.25 MCG CAP PO SCH (10:08)
[2017-06-03] MEDS: GABAPENTIN 300 MG CAP PO SCH ×2 (10:08→20:02)
[2017-06-03] MEDS: CHOLECALCIFEROL 1,000 UNIT TAB PO SCH (10:08)
[2017-06-03] MEDS: AZITHROMYCIN 500 MG in SODIUM CHLORIDE 0.9% 250 ML IVPB SCH (10:09)
[2017-06-03] MEDS: ENOXAPARIN 30 MG/0.3 ML SYRINGE SQ SCH (10:09)
[2017-06-03] MEDS: ASPIRIN 81 MG CHEW PO SCH (10:09)
[2017-06-03] MEDS: traMADol 50 MG TAB PO PRN (10:39)
--- NOTE | 2017-06-03 15:36 | P.PN ---
Subjective Principal diagnosis: Hip pain right Patient is abuyugds-[id number]-fub female with a past medical history of congestive heart failure, coronary artery disease status post stenting, and dyslipidemia who presented with complaints of left hip pain. In the emergency department she underwent an extensive evaluation. Her initial vital signs were within normal limits. Her x-rays showed a right sacral fracture. Laboratory analysis showed a slight anemia and elevated creatinine. She was given pain control started on IV fluids. She was admitted to the general medical floor for further monitoring and care. Orthopedic surgery was consulted and recommended nonweightbearing status for 6-12 weeks with outpatient follow-up. She developed a fever and was started on treatment for pneumonia. Physical therapy recommended subacute rehab and arrangements are being made to transfer the patient. Patient seen and examined at bedside. Feeling ood. Not having any pain. Tolerated sideboard well. Denies chest pain, shortness breath, nausea, and vomiting. Objective - Vital Signs Vital signs: Vital Signs Temp 97.9 F 06/03/17 07:00 Pulse 61 06/03/17 07:00 Resp 16 06/03/17 07:00 BP 92/52 06/03/17 07:00 Pulse Ox 96 06/03/17 07:00 Intake & Output 06/02/17 06/03/17 06/03/17 18:59 06:59 18:59 Intake Total 860 236 Output Total 1100 800 225 Balance -240 -800 11 Weight 81 kg Intake: Intake, IV Titration 500 Amount Azithromycin 500 mg In 250 Sodium Chloride 0.9% 250 ml @ 125 mls/hr IVPB DAILY [facility] Rx#:[id number] Sodium Chloride 0.9% 1, 200 000 ml @ 50 mls/hr IV . Q20H [facility] Rx#:[id number] cefTRIAXone 1,000 mg In 50 Sodium Chloride 0.9% 50 ml @ 100 mls/hr IVPB Q12HR [facility] Rx#:[id number] Oral 360 236 Output: Urine 1100 800 225 Uretheral (Flowers) 800 400 Other: Voiding Method Indwelling Catheter Indwelling Catheter # Bowel Movements 1 - Exam General: non toxic, no distress, appears at stated age Derm: no rashes, no lesions, dressings left LE, right ankle with skin sloughing only. Head: atraumatic, normocephalic, symmetric Eyes: EOMI, no lid lag, anicteric sclera ENT: no post nasal drip, no thrush Mouth: no lip lesion, mucus membranes moist Cardiovascular: S1S2 reg, no murmur, positive posterior tibial pulse bilateral, Lungs: dereased bs b/l bases, no rhonchi, no rales , no accessory muscle use Abdominal: soft, nontender to palpation, no guarding, no appreciable organomegaly Ext: no gross muscle atrophy, no edema, no contractures Neuro: CN II-XI grossly intact, no focal neuro deficits Psych: Alert, oriented, appropriate affect - Labs CBC & Chem 7: 06/03/17 08:17 06/03/17 08:13 Labs: Abnormal Lab Results - Last 24 Hours (Table) 06/03/17 06/03/17 Range/Units 08:13 08:17 RBC 2.90 L (3.80-5.40) m/uL Hgb 8.9 L (11.4-16.0) gm/dL Hct 28.7 L (34.0-46.0) % MCHC 30.9 L (31.0-37.0) g/dL RDW 15.7 H (11.5-15.5) % Chloride 108 H (98-107) mmol/L BUN 45 H (7-17) mg/dL Creatinine 1.37 H (0.52-1.04) mg/dL Microbiology - Last 24 Hours (Table) 06/01/17 16:45 Blood Culture - Preliminary Blood No Growth after 24 hours 06/01/17 15:38 Blood Culture - Preliminary Blood No Growth after 24 hours Assessment and Plan Plan: #Right sacral nonweightbearing status for 6-12 weeks, outpatient orthopedic surgery follow-up, pain control, PT recommendations, suspect that patient will need to go to rehab to help with transfers. #Pneumonia, [id number] spirometer, Rocephin and Zithromax, repeat chest x-ray in 1-2 weeks #Acute kidney injury on chronic kidney disease stage III-baseline creatinine appears to be 1.2, hold Lasix, follow creatinine, additional nephrotoxic agents #Anemia, chronic-appears at baseline, follow CBC #Congestive heart failure, unknown ejection fraction-appears currently compensated, not chronically on beta mely or NORIS inhibitor and we'll not initiate, follow clinical status closely with Lasix being held and gentle IV fluids being given. #Hypothyroidism-continue Synthroid #Atherosclerotic coronary artery disease-continue aspirin, not chronically on statin therapy #Venous stasis ulcer of left lower extremity-wound care, frequent turns to SNF once approved Surrogate decision-maker: Granddaughter Lexy CODE STATUS: Full DVT prophylaxis: Lovenox Discussed with: Patient, nursing, Casemanagement Anticipated discharge: [address]: Rehabilitation A total of 45 minutes was spent on the care of this complex patient more than 50 % of the time was spent in counseling and care coordination.
[2017-06-04] MEDS: traMADol 50 MG TAB PO PRN ×3 (02:34→15:05)
[2017-06-04] MEDS: LEVOTHYROXINE 25 MCG TAB PO SCH (06:26)
[2017-06-04] MEDS: ASPIRIN 81 MG CHEW PO SCH (09:18)
[2017-06-04] MEDS: CHOLECALCIFEROL 1,000 UNIT TAB PO SCH (09:19)
[2017-06-04] MEDS: AZITHROMYCIN 500 MG TAB PO SCH (09:19)
[2017-06-04] MEDS: CALCITRIOL 0.25 MCG CAP PO SCH (09:19)
[2017-06-04] MEDS: ENOXAPARIN 30 MG/0.3 ML SYRINGE SQ SCH (09:20)
[2017-06-04] MEDS: GABAPENTIN 300 MG CAP PO SCH ×2 (09:20→20:29)
--- NOTE | 2017-06-04 14:22 | P.PN ---
Subjective Principal diagnosis: Hip pain right Patient is [id number]-nok female with a past medical history of congestive heart failure, coronary artery disease status post stenting, and dyslipidemia who presented with complaints of left hip pain. In the emergency department she underwent an extensive evaluation. Her initial vital signs were within normal limits. Her x-rays showed a right sacral fracture. Laboratory analysis showed a slight anemia and elevated creatinine. She was given pain control started on IV fluids. She was admitted to the general medical floor for further monitoring and care. Orthopedic surgery was consulted and recommended nonweightbearing status for 6-12 weeks with outpatient follow-up. She developed a fever and was started on treatment for pneumonia. Physical therapy recommended subacute rehab and arrangements are being made to transfer the patient. Patient seen and examined at bedside. Feeling well. Pain controlled well, using slide board. Denies chest pain, shortness breath, nausea, and vomiting. Objective - Vital Signs Vital signs: Vital Signs Temp 98.2 F 06/04/17 08:00 Pulse 72 06/04/17 09:00 Resp 14 06/04/17 09:00 BP 106/59 06/04/17 08:00 Pulse Ox 99 06/04/17 08:00 Intake & Output 06/03/17 06/04/17 06/04/17 18:59 06:59 18:59 Intake Total 236 Output Total 225 500 Balance 11 -500 Weight 76.5 kg Intake: Oral 236 Output: Urine 225 500 Other: Voiding Method Indwelling Catheter Indwelling Catheter Indwelling Catheter # Bowel Movements 1 0 - Exam General: non toxic, no distress, appears at stated age Derm: no rashes, no lesions, dressings left LE, right ankle with skin sloughing only. Head: atraumatic, normocephalic, symmetric Eyes: EOMI, no lid lag, anicteric sclera ENT: no post nasal drip, no thrush Mouth: no lip lesion, mucus membranes moist Cardiovascular: S1S2 reg, no murmur, positive posterior tibial pulse bilateral, Lungs: dereased bs b/l bases, no rhonchi, no rales , no accessory muscle use Abdominal: soft, nontender to palpation, no guarding, no appreciable organomegaly Ext: no gross muscle atrophy, no edema, no contractures Neuro: CN II-XI grossly intact, no focal neuro deficits Psych: Alert, oriented, appropriate affect - Labs CBC & Chem 7: 08/28/17 08:17 06/03/17 08:13 Labs: Microbiology - Last 24 Hours (Table) 06/01/17 16:45 Blood Culture - Preliminary Blood No Growth after 48 hours 06/01/17 15:38 Blood Culture - Preliminary Blood No Growth after 48 hours Assessment and Plan Plan: #Right sacral nonweightbearing status for 6-12 weeks, outpatient orthopedic surgery follow-up in3-4 weeks with repeat x-rays, pain control, PT recommendations, suspect that patient will need to go to rehab to help with transfers. #Pneumonia, [id number] spirometer, Rocephin and Zithromax D # 01/11, repeat chest x-ray in 1-2 weeks #Acute kidney injury on chronic kidney disease stage III-baseline creatinine appears to be 1.2, hold Lasix, follow creatinine, additional nephrotoxic agents #Anemia, chronic-appears at baseline, follow CBC #Congestive heart failure, unknown ejection fraction-appears currently compensated, not chronically on beta mely or NORIS inhibitor and we'll not initiate, follow clinical status closely with Lasix being held #Hypothyroidism-continue Synthroid #Atherosclerotic coronary artery disease-continue aspirin, not chronically on statin therapy #Venous stasis ulcer of left lower extremity-wound care, frequent turns to SNF once approved Surrogate decision-maker: Granddaughter Lexy CODE STATUS: Full DVT prophylaxis: Lovenox Discussed with: Patient, nursing, Social work Anticipated discharge: 24-[address]: Rehabilitation A total of 25 minutes was spent on the care of this complex patient more than 50 % of the time was spent in counseling and care coordination.
[2017-06-04] MEDS: HYDROcodone/APAP 7.5-325MG 1 EACH TAB PO PRN (18:20)
[2017-06-04] MEDS: ACETAMINOPHEN TAB 325 MG TAB PO PRN (23:28)
[2017-06-05] MEDS: LEVOTHYROXINE 25 MCG TAB PO SCH (06:14)
[2017-06-05] MEDS: AMMONIUM LACTATE 12% LOTION 225 GM BTL TOPICAL PRN (06:26)
[2017-06-05] MEDS ORDERED: DILTIAZEM ORAL 30 MG TAB PO STA (07:38)
[2017-06-05] MEDS: ENOXAPARIN 80 MG/0.8 ML SYRINGE SQ SCH (07:59)
[2017-06-05] MEDS: ASPIRIN 81 MG CHEW PO SCH (07:59)
[2017-06-05] MEDS: GABAPENTIN 300 MG CAP PO SCH ×2 (07:59→20:20)
[2017-06-05] MEDS: CALCITRIOL 0.25 MCG CAP PO SCH (07:59)
[2017-06-05] MEDS: CHOLECALCIFEROL 1,000 UNIT TAB PO SCH (07:59)
[2017-06-05] MEDS: AZITHROMYCIN 500 MG TAB PO SCH (07:59)
[2017-06-05 08:42] LABS: Calcium 8.4 mg/dL (8.4-10.2); Potassium 4.6 mmol/L (3.5-5.1)
[2017-06-05 08:43] LABS: Creatine Kinase MB 0.6 ng/mL (0.0-2.4)
[2017-06-05 08:54] LABS: Troponin I 0.043 ng/mL (0.000-0.034)
[2017-06-05] MEDS ORDERED: METOPROLOL TARTRATE 5 MG/5 ML VIAL IVP ONE ×2 (09:15→11:20)
[2017-06-05] MEDS ORDERED: METOPROLOL TARTRATE 50 MG TAB PO SCH (09:30)
--- NOTE | 2017-06-05 10:50 | P.PN ---
Progress Note - Text Called by nursing that patient had gone into A. fib with RVR at a rate of 140. Transfer orders put in for selective care. And then immediately went to assess the patient. Patient seen and examined at bedside. She denies chest pain, palpitations, shortness of breath, lightheaded or dizziness. She denies any history of atrial fibrillation. She has a history of heart attack in the past but denies any ongoing heart conditions. General: [non toxic], [no distress], [appears at stated age] Derm: [no rashes], [no lesions] Head: [atraumatic], [normocephalic], [symmetric] Eyes: [EOMI], [no lid lag], [anicteric sclera] ENT: [no post nasal drip], [no thrush] Mouth: [no lip lesion], [mucus membranes moist] Cardiovascular: [S1S2 reg], [no murmur], [positive posterior tibial pulse bilateral], Lungs: [CTA bilateral], [no rhonchi, no rales] , [no accessory muscle use] Abdominal: [soft], [ nontender to palpation], [no guarding], [no appreciable organomegaly] Ext: [no gross muscle atrophy], [no edema], [no contractures] Neuro: [ CN II-XI grossly intact], [no focal neuro deficits] Psych: [Alert], [oriented], [appropriate affect] Assessment/plan: Atrial fibrillation with rapid ventricular response, new onset-unable to give IV metoprolol at this time due to the patient being on the fourth floor. With blood pressure stable and patient asymptomatic proceed with Cardizem 30 mg by mouth 1. Transfer orders for selective care. TSH and magnesium levels ordered. Echocardiogram ordered. Cardiology consultation place. Once the care will give metoprolol IV push 1. If patient has any deterioration will give IV metoprolol. Returned to check on patient X 4 between 7:30 and 10 am. Had been moved to Selective care during that time. Case also discussed with cardiology, Emma Tenorio DO
--- NOTE | 2017-06-05 11:12 | P.PN ---
Subjective Principal diagnosis: A fib Patient is an 87 year-old female with a past medical history of congestive heart failure, coronary artery disease status post stenting, and dyslipidemia who presented with complaints of left hip pain. In the emergency department she underwent an extensive evaluation. Her initial vital signs were within normal limits. Her x-rays showed a right sacral fracture. Laboratory analysis showed a slight anemia and elevated creatinine. She was given pain control started on IV fluids. She was admitted to the general medical floor for further monitoring and care. Orthopedic surgery was consulted and recommended nonweightbearing status for 6-12 weeks with outpatient follow-up. She developed a fever and was started on treatment for pneumonia. Physical therapy recommended subacute rehab and arrangements were being made to transfer the patient. She developed A fib with RVR on 06/05. Patient seen and examined at bedside. No chest pain, shortness of breath, lightheadedness, dizziness, sweating, diaphoresis, or nausea. She states her pain is well-controlled until she goes to move. She does complain of thigh tightness. Objective - Vital Signs Vital signs: Vital Signs Temp 99.4 F 06/05/17 09:00 Pulse 158 H 06/05/17 09:00 Resp 22 06/05/17 09:00 BP 112/60 06/05/17 09:00 Pulse Ox 93 L 06/04/17 23:00 Intake & Output 06/04/17 06/05/17 06/05/17 18:59 06:59 18:59 Output Total 400 Balance -400 Weight 74 kg Output: Urine 400 Other: Voiding Method Indwelling Catheter Indwelling Catheter Indwelling Catheter # Voids 1 - Exam General: non toxic, no distress, appears at stated age, obese, pleasant Derm: no rashes, no lesions, multiple small pressure ulcers bilateral lower extremities Head: atraumatic, normocephalic, symmetric Eyes: EOMI, no lid lag, anicteric sclera ENT: no post nasal drip, no thrush Mouth: no lip lesion, mucus membranes moist Cardiovascular: S1-S2 irregular, no murmur, diminished posterior tibial pulse bilateral, Lungs: Diminished breath sounds bilateral l, no rhonchi, no rales , no accessory muscle use Abdominal: soft, nontender to palpation, no guarding, no appreciable organomegaly Ext: no gross muscle atrophy, no edema, no contractures Neuro: CN II-XI grossly intact, no focal neuro deficits Psych: Alert, oriented, appropriate affect - Labs CBC & Chem 7: 06/03/17 08:17 06/05/17 07:52 Labs: Abnormal Lab Results - Last 24 Hours (Table) 06/05/17 06/05/17 Range/Units 07:52 07:52 BUN 41 H (7-17) mg/dL Creatinine 1.37 H (0.52-1.04) mg/dL Troponin I 0.043 H* (0.000-0.034) ng/mL Microbiology - Last 24 Hours (Table) 06/01/17 16:45 Blood Culture - Preliminary Blood No Growth after 72 hours 06/01/17 15:38 Blood Culture - Preliminary Blood No Growth after 72 hours Assessment and Plan Plan: #a fib with RVR-Transferred to selective care, Metoprolol IVP X 1 and then oral , discussed with cardiology, check echocardiogram, magnesium level, TSH, Lovenox full dose given, check chest x-ray #Thigh tightness-check lower extremity venous Dopplers to rule out clot, patient has been on Lovenox this admission, however with her being nonweightbearing she is at risk for DVT. #Right sacral nonweightbearing status for 6-12 weeks, outpatient orthopedic surgery follow-up in 3-4 weeks with repeat x-rays, pain control, PT recommendations, suspect that patient will need to go to rehab to help with transfers. #Pneumonia, cnckdujao-fqhyqxfl-myvhyobro spirometer, Rocephin and Zithromax D # /, repeat chest x-ray in 1-2 weeks #Acute kidney injury on chronic kidney disease stage III-appears near baseline, continue to hold Lasix, follow creatinine, additional nephrotoxic agents #Anemia, chronic-appears at baseline, follow CBC #Congestive heart failure, unknown ejection fraction-appears currently compensated, not chronically on beta mely or NORIS inhibitor and we'll not initiate, await echo, follow clinical status closely with Lasix being held #Hypothyroidism-continue Synthroid #Atherosclerotic coronary artery disease-continue aspirin, not chronically on statin therapy #Venous stasis ulcer of left lower extremity-wound care, frequent turns To selective care Surrogate decision-maker: Granddaughter Lexy CODE STATUS: Full DVT prophylaxis: Lovenox Discussed with: Patient, nursing, cardiology Anticipated discharge: 48 hours- can be discharged once heart rate controlled Anticipated discharge place: Rehabilitation A total of 70 minutes of critical care times was spent on this complex patient ( see additional note from same date.) more than 50% of the time was spent in counseling and care coordination.
--- NOTE | 2017-06-05 12:11 | XR ---
EXAMINATION TYPE: XR chest 1V portable DATE OF EXAM: 06/05/2017 COMPARISON: 06/01/2017 HISTORY: Shortness of breath TECHNIQUE: Single frontal view of the chest is obtained. FINDINGS: Dislocation of the right shoulder. Heart size stable and is atherosclerotic change of the aorta. No definite consolidation or pneumothorax. IMPRESSION: 1. No definite acute intrathoracic process. Retrocardiac density again felt to be most likely related to hiatal hernia. 2. Dislocation right shoulder.
--- NOTE | 2017-06-05 13:46 | CONS ---
CONSULTATION Date of Consultation: This is an 87-year-old female, who came to the hospital after a fall and had a sacral fracture. She was brought upstairs from the fourth floor because she went into atrial fibrillation with rapid ventricular response. I am waiting for the 12-lead ECG at this time. At this time she denies any chest discomfort, no undue shortness of breath. She is lying comfortably in bed playing with the iPad. She denies any palpitations. PAST HISTORY: Coronary artery disease status post stenting to the proximal RCA in 2007. LVEDP elevated at baseline at that time and when I saw her last in 2014, I had started her on atorvastatin 20 mg p.o. daily. Her blood pressure was well controlled. TSH has been normal in the past. LV function has been normal. REVIEW OF SYSTEMS: No fever, chills, rigors or cough, expectoration, nausea, vomiting, diarrhea. No hematuria or dysuria. No strokes, seizures. No musculoskeletal complaints. PHYSICAL EXAMINATION: At this time, her blood pressure is 106/57 and 112/60 mmHg. Pulse rate is in the 140s. She is afebrile 98.9 degrees Fahrenheit. Head and neck examination is normal. Heart sounds S1, S2 are rapid and tachycardic, no murmurs or gallops. Breath sounds are reduced bilaterally. Abdomen is soft. She is obese. LABS: Reviewed. Hemoglobin is 8.9. Electrolytes are normal. BUN 41, creatinine 1.37 and borderline troponins of 0.043. IMPRESSION: 1. Atrial fibrillation with rapid ventricular rate. First diagnosis of atrial fibrillation. 2. Hypertensive heart disease. 3. Coronary artery disease, status post coronary stenting of the right coronary artery in 2007. PLAN: Rate control of atrial fibrillation. I will start her on metoprolol 50 mg twice daily and tomorrow we will maximize the dose and taper off any IV Cardizem. She will need to be anticoagulated and I will wait for input from Orthopedics before we start her on anticoagulation since she just had a sacral fracture. She is on enoxaparin 80 mg subcu daily and we can start her on anticoagulation, either Noac or Coumadin and watch for any bleeding in her back or bruising in her back secondary to sacral fracture. She will continue aspirin and I will treat her with statins 20 mg of atorvastatin p.o. daily since she has known coronary artery disease. Thank you for the consultation. JAYSHREE / LATASHAN: [id number] /
--- NOTE | 2017-06-05 16:28 | US ---
EXAMINATION TYPE: US venous doppler duplex LE DATE OF EXAM: 06/05/2017 4:21 PM COMPARISON: NONE CLINICAL HISTORY: edema pain. Edema bilateral legs, wound left ankle SIDE PERFORMED: bilateral TECHNIQUE: The lower extremity deep venous system is examined utilizing real time linear array sonog micha with graded compression, doppler sonography and color-flow sonography. VESSELS IMAGED: External Iliac Vein (EIV) Common Femoral Vein Deep Femoral Vein Greater Saphenous Vein * Femoral Vein Popliteal Vein Small Saphenous Vein * Proximal Calf Veins (* superficial vessels) Subcutaneous edema is noted within the lower extremities. Right Leg: no evidence of acute DVT Left Leg: no evidence of acute DVT Grayscale, color doppler, spectral doppler imaging performed of the deep veins of the lower extremiti es. There is normal flow, compressibility, vascular waveforms. IMPRESSION: Bilateral lower extremity subcutaneous edema with no sonographic evidence of deep venous or masses within either lower extremity.
[2017-06-05] MEDS: METOPROLOL TARTRATE 50 MG TAB PO SCH ×2 (16:41→20:17)
--- NOTE | 2017-06-05 18:32 | ECHOF ---
Referral Reason:a fib, cardiomyopathy MEASUREMENTS -------- HEIGHT: 152.4 cm WEIGHT: 73.9 kg BP: 112/60 RVIDd: 2.7 cm (< 3.3) IVSd: 1.5 cm (0.6 - 1.1) LVIDd: 4.0 cm (3.9 - 5.3) LVPWd: 1.5 cm (0.6 - 1.1) EDV(Teich): 68 ml IVSs: 1.9 cm LVIDs: 2.7 cm LVPWs: 1.9 cm %IVS Thck: 24 % ESV(Teich): 27 ml EF(Teich): 61 % %FS: 32 % SV(Teich): 41 ml LALs A4C: 6.7 cm LAAs A4C: 25.7 cm LAESV A-L A4C: 84 ml LAESV MOD A4C: 80 ml LALs A2C: 6.2 cm LAAs A2C: 24.4 cm LAESV A-L A2C: 81 ml LAESV MOD A2C: 80 ml LAESV(A-L): 86 ml LAESV Index (A-L): 50.32 ml/m Ao Diam: 3.5 cm (2.0 - 3.7) AV Cusp: 2.1 cm (1.5 - 2.6) LA Diam: 4.5 cm (2.7 - 3.8) MV EXCURSION: 18.807 mm (> 18.000) MV EF SLOPE: 127 mm/s (70 - 150) EPSS: 0.7 cm AV Vmax: 1.39 m/s AV maxP.72 mmHg TR Vmax: 2.42 m/s TR maxP.51 mmHg RAP: 5.00 mmHg RVSP: 28.51 mmHg FINDINGS -------- Atrial fibrillation. This was a technically adequate study. There is moderate concentric left ventricular hypertrophy. Overall left ventricular systolic function is normal with, an EF between 55 - 60 %. The right ventricle is normal in size and function. LA is severely dilated >40 ml/m2 The right atrium is normal in size. Aortic valve is trileaflet and is mildly thickened. There is no evidence of aortic regurgitation. There is no evidence of aortic stenosis. The mitral valve leaflets are mildly thickened. Mild mitral annular calcification present. There is trace to mild mitral regurgitation. Trace tricuspid regurgitation present. There is no evidence of pulmonary hypertension. The right ventricular systolic pressure, as measured by Doppler, is 28.51mmHg. The pulmonic valve was not well visualized. The aortic root size is borderline dilated to 3.7cm. Normal inferior vena cava with normal inspiratory collapse consistent with estimated right atrial pressure of 5 mmHg. The pericardium is normal. There is no pericardial effusion. CONCLUSIONS -------- 1. Atrial fibrillation. 2. Trace tricuspid regurgitation present. 3. There is no evidence of pulmonary hypertension. 4. The right ventricular systolic pressure, as measured by Doppler, is 28.51mmHg. 5. The pulmonic valve was not well visualized. 6. The aortic root size is borderline dilated to 3.7cm. 7. There is no pericardial effusion. 8. This was a technically adequate study. 9. There is moderate concentric left ventricular hypertrophy. 10. Overall left ventricular systolic function is normal with, an EF between 55 - 60 %. 11. LA is severely dilated >40 ml/m2 12. Aortic valve is trileaflet and is mildly thickened. 13. The mitral valve leaflets are mildly thickened. 14. Mild mitral annular calcification present. 15. There is trace to mild mitral regurgitation. [employer] CONSULTANT: Drew Crandall RDCS
[2017-06-05] MEDS: ATORVASTATIN 10 MG TAB PO SCH (20:17)
[2017-06-06] MEDS: LEVOTHYROXINE 25 MCG TAB PO SCH (06:24)
[2017-06-06 06:46] LABS: CH 31.4; CHCM 32.9; HCT 27.4 % (34.0-46.0); HDW 2.23; HGB 8.9 gm/dL (11.4-16.0); MCH 31.1 pg (25.0-35.0); MCHC 32.3 g/dL (31.0-37.0); MCV 96.2 fL (80.0-100.0); Mean Platelet Volume 8.2; RBC 2.85 m/uL (3.80-5.40); RDW 15.6 % (11.5-15.5); WBC 7.9 k/uL (3.8-10.6)
[2017-06-06 06:59] LABS: Magnesium 2.2 mg/dL (1.6-2.3)
[2017-06-06] MEDS: HYDROcodone/APAP 7.5-325MG 1 EACH TAB PO PRN ×2 (07:14→20:35)
[2017-06-06] MEDS: CHOLECALCIFEROL 1,000 UNIT TAB PO SCH (07:47)
[2017-06-06] MEDS: ENOXAPARIN 80 MG/0.8 ML SYRINGE SQ SCH (07:47)
[2017-06-06] MEDS: GABAPENTIN 300 MG CAP PO SCH ×2 (07:48→20:34)
[2017-06-06] MEDS: CALCITRIOL 0.25 MCG CAP PO SCH (07:48)
[2017-06-06] MEDS: ASPIRIN 81 MG CHEW PO SCH (07:48)
[2017-06-06] MEDS: AZITHROMYCIN 500 MG TAB PO SCH (07:48)
[2017-06-06] MEDS: METOPROLOL TARTRATE 50 MG TAB PO SCH ×2 (07:48→20:35)
--- NOTE | 2017-06-06 09:39 | P.PN ---
Subjective Patient is doing reasonably well. She she aches all over. She denies any chest discomfort or angina like symptoms. On telemetry for A. fib rates even at rest are 110 beats a minute. She is on metoprolol 50mg 3 times a day. She is not anticoagulated at this point because she suffered a sacral fracture but today we will start this since it is okayed by orthopedics. BUN is 41 and creatinine is 1.37 creatinine clearance is 22 TSH is normal at 2.76. On examination, pulse rate 110 beats a minute, temperature 90.8, blood pressure 106 /65 mmHg Heart sounds are tachycardic, breath sounds are reduced bilaterally but I don't hear any rhonchi or crackles Impression A. fib with RVR resting heart rates as 110 beats a minute despite 50 mg 3 times a day of metoprolol Known CAD status post stenting Plan Increase metoprolol to 100 mg twice daily and start anticoagulation ELIQUIS 2.5 g twice daily creatinine clearance 22 Objective - Vital Signs Vital signs: Vital Signs Temp 98 F 06/06/17 04:00 Pulse 110 H 06/06/17 04:00 Resp 16 06/06/17 04:00 BP 106/65 06/06/17 04:00 Pulse Ox 97 06/06/17 04:00 Intake & Output 06/05/17 06/06/17 06/06/17 18:59 06:59 18:59 Intake Total 476 120 120 Output Total 300 300 Balance 176 -180 120 Weight 71.5 kg Intake: IV 20 0.9 @ 10mls 20 Intake, IV Titration 100 Amount cefTRIAXone 1,000 mg In 100 Sodium Chloride 0.9% 50 ml @ 100 mls/hr IVPB Q12HR [facility] Rx#:[id number] Oral 476 120 Output: Urine 300 300 Uretheral (Flowers) 200 Other: Voiding Method Indwelling Catheter Indwelling Catheter # Voids 1 - Labs CBC & Chem 7: 06/06/17 05:41 06/05/17 07:52 Labs: Abnormal Lab Results - Last 24 Hours (Table) 06/06/17 Range/Units 05:41 RBC 2.85 L (3.80-5.40) m/uL Hgb 8.9 L (11.4-16.0) gm/dL Hct 27.4 L (34.0-46.0) % RDW 15.6 H (11.5-15.5) % Microbiology - Last 24 Hours (Table) 06/01/17 16:45 Blood Culture - Preliminary Blood No Growth after 96 hours 06/01/17 15:38 Blood Culture - Preliminary Blood No Growth after 96 hours
--- NOTE | 2017-06-06 10:02 | P.PN ---
Subjective Principal diagnosis: A fib Patient is an 87 year-old female with a past medical history of congestive heart failure, coronary artery disease status post stenting, and dyslipidemia who presented with complaints of left hip pain. In the emergency department she underwent an extensive evaluation. Her initial vital signs were within normal limits. Her x-rays showed a right sacral fracture. Laboratory analysis showed a slight anemia and elevated creatinine. She was given pain control started on IV fluids. She was admitted to the general medical floor for further monitoring and care. Orthopedic surgery was consulted and recommended nonweightbearing status for 6-12 weeks with outpatient follow-up. She developed a fever and was started on treatment for pneumonia. Physical therapy recommended subacute rehab and arrangements were being made to transfer the patient. She developed A fib with RVR on 06/05 she was transferred to [facility] care, given IV metoprolol X 2 and started on oral metoprolol, ECHO showed dilated LA but was otherwise unremarkable, TSH and Mg normal. SHe was started on lovenox. Cardiology is following. Her HR was better controlled on the morning of 06/06 but was still suboptimal and her metoprolol was increased. CXR revealed no PNA but did show a possible right should dislocation. Ortho was contacted. Patient seen and examined at bedside. She complains of left sided shoulder/arm pain, states that this was there several weeks and had resolved, she does intermittently have joint pain due to gout and arthritis. She denies CP, SOB, Nausea, Vomiting, lightheadedness, dizziness, and diaphoresis. She is otherwise feeling okay. We discussed that she will not be discharged until at least tomorrow. Offered to call family for her, she declined and stated son would be here shortly. Objective - Vital Signs Vital signs: Vital Signs Temp 98 F 06/06/17 04:00 Pulse 110 H 06/06/17 04:00 Resp 16 06/06/17 04:00 BP 106/65 06/06/17 04:00 Pulse Ox 97 06/06/17 04:00 Intake & Output 06/05/17 06/06/17 06/06/17 18:59 06:59 18:59 Intake Total 476 120 120 Output Total 300 300 Balance 176 -180 120 Weight 71.5 kg Intake: IV 20 0.9 @ 10mls 20 Intake, IV Titration 100 Amount cefTRIAXone 1,000 mg In 100 Sodium Chloride 0.9% 50 ml @ 100 mls/hr IVPB Q12HR [facility] Rx#:[id number] Oral 476 120 Output: Urine 300 300 Uretheral (Flowers) 200 Other: Voiding Method Indwelling Catheter Indwelling Catheter # Voids 1 - Exam General: non toxic, mild distress, appears at stated age, obese, pleasant Derm: no rashes, no lesions, multiple small pressure ulcers bilateral lower extremities Head: atraumatic, normocephalic, symmetric Eyes: EOMI, no lid lag, anicteric sclera ENT: no post nasal drip, no thrush Mouth: no lip lesion, mucus membranes moist Cardiovascular: S1-S2 irregular, no murmur, diminished posterior tibial pulse bilateral, Lungs: Diminished breath sounds bilateral l, no rhonchi, no rales , no accessory muscle use Abdominal: soft, nontender to palpation, no guarding, no appreciable organomegaly Ext: no gross muscle atrophy, no edema, no contractures. right should with step off, no pain to palpation of joint on left shoulder or elbow. Neuro: CN II-XI grossly intact, no focal neuro deficits Psych: Alert, oriented, appropriate affect - Labs CBC & Chem 7: 06/06/17 05:41 06/05/17 07:52 Labs: Abnormal Lab Results - Last 24 Hours (Table) 06/06/17 Range/Units 05:41 RBC 2.85 L (3.80-5.40) m/uL Hgb 8.9 L (11.4-16.0) gm/dL Hct 27.4 L (34.0-46.0) % RDW 15.6 H (11.5-15.5) % Microbiology - Last 24 Hours (Table) 06/01/17 16:45 Blood Culture - Preliminary Blood No Growth after 96 hours 06/01/17 15:38 Blood Culture - Preliminary Blood No Growth after 96 hours Assessment and Plan Plan: #a fib with RVR-Transferred to selective care 06/05, still with suboptimal control, metoprolol increased as per cardiology, continue with lovenox today until hear back from ortho then can start eliquis 2.5mg BID. Echocardiogram with dilated LA, magnesium level and TSH normal, CXR with not intrathorasic process did show possible acute vs chronic shoulder dislocation. # Right should subulaxtion vs dislocation vs chronic dislocation- not painful per patient, awaiting call back from ortho. 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 #Atelecatasis, (PNA ruled out with repeat CXR)-stop ABX, IS #Acute kidney injury on chronic kidney disease stage III-appears near baseline, continue to hold Lasix, follow creatinine, additional nephrotoxic agents #Anemia, chronic-appears at baseline, follow CBC #Congestive heart failure, ejection fraction 55-60%-appears currently compensated, follow clinical status closely with Lasix being held #Hypothyroidism-continue Synthroid, TSH normal #Atherosclerotic coronary artery disease-continue aspirin, not chronically on statin therapy #Venous stasis ulcer of left lower extremity-wound care, frequent turns Surrogate decision-maker: Granddaughter Lexy CODE STATUS: Full DVT prophylaxis: Lovenox Discussed with: Patient, nursing, cardiology, ortho Anticipated discharge: 24 hours- can be discharged once heart rate controlled Anticipated discharge place: Rehabilitation A total of 35 minutes of care time was spent on this complex patient more than 50% of the time was spent in counseling and care coordination.
[2017-06-06] MEDS: MORPHINE SULFATE 4 MG/ML SYRINGE IV PRN (10:17)
--- NOTE | 2017-06-06 10:49 | XR ---
EXAMINATION TYPE: XR shoulder complete RT , 3 VIEWS DATE OF EXAM ORDERED: 06/06/2017 HISTORY: shoulder dislocation. COMPARISON: Previous study dated 06/06/2012. FINDINGS: There is an anterior dislocation of the glenohumeral joint. There is near complete loss of the glenohumeral cartilage. There is remodeling change in the glenohumeral joint. IMPRESSION: ANTERIOR DISLOCATION OF THE RIGHT SHOULDER.
--- NOTE | 2017-06-06 10:57 | CDI ---
In responding to this query, please exercise your independent professional judgment. The [facility] Coding Staff and Clinical Documentation Specialists appreciate your assistance in clarifying documentation, maintaining compliance with coding guidelines, accurately documenting patients condition and capturing severity of illness. The fact that a question is asked does not imply that any particular answer is desired or expected. Communication forms are a method of clarifying documentation and are not made part of the Legal Health Record. Thank you in advance for your clarification. Last Revision, December 2016 Dana Dudley [address] [facility] [place] [address] Documentation Clarification Form Date: 06/06/2017 10:43:00 AM From: Linda Corcoran Admit Date: 06/03/2017 8:46:00 AM Patient Name: Nazia Jordan Visit Number: [id number] Dr. Emma Cortez CHF is documented in the Attending progress notes. History/Risk Factors: Cad w pci, hyperlipidemia. Chronic CHF, new onset A-fib Clinical Indicators: 06/06 Attending Progress Notes: "Congestive heart failure, ejection fraction 55- 60%-appears currently compensated, follow clinical status closely with Lasix being held." VS/Pulse OX: Temp 97.7, hr 73, RR 15, B/P 134/62, spo2 97% ra BNP: not done Echocardiogram Results: EF 55-60%, moderate concentric left ventricular hypertrophy, LA severely dilated 06/05 Chest X Ray: hiatal hernia. Dislocation of right shoulder Treatment: Lasix on hold Consults: Cardiology In your professional opinion, can you please clarify the acuity and type of CHF if known? Systolic Heart Failure: Acute Chronic Acute on Chronic Diastolic Heart Failure: Acute Chronic Acute on Chronic Systolic & Diastolic Heart Failure: Acute Chronic Acute on Chronic Unable to determine Other, please specify Please document in your progress notes and discharge summary in order to capture severity of illness and risk of mortality. Include clinical findings that support your diagnosis. FYI: Press F11 to launch patient chart. Place X here if this finding has no clinical significance, is not applicable or if you are not able to provide any additional documentation. ANSHU
--- NOTE | 2017-06-06 11:12 | CDI ---
In responding to this query, please exercise your independent professional judgment. The [facility] Coding Staff and Clinical Documentation Specialists appreciate your assistance in clarifying documentation, maintaining compliance with coding guidelines, accurately documenting patients condition and capturing severity of illness. The fact that a question is asked does not imply that any particular answer is desired or expected. Communication forms are a method of clarifying documentation and are not made part of the Legal Health Record. Thank you in advance for your clarification. Last Revision, August 2015 Dana Dudley [address] [place] [address] Documentation Clarification Form Date: 06/06/2017 10:58:00 AM From: Linda Corcoran RN, CCDS Admit Date: 06/03/2017 8:46:00 AM Patient Name: Nazia Jrodan Visit Number: [id number] Dr. Eleazar Bain New onset atrial fibrillation is documented in the Attending and Cardiology Progress Notes and requires further specificity. History/Risk Factors: CAD, CP, CHF, [place], PCI, Renal Disease, Vascular disorder Clinical Indicators: 06/05 Cardiology Consult: "She was brought upstairs from the fourth floor because she went into atrial fibrillation with rapid ventricular response." EKG/telemetry: Atrial Fib onset 06/05 0741 Treatment: Consults: Cardiology Cardizem 30 mg PO OT, Lopressor 5 mg IVP x1, Lopressor 100mg PO BID In your professional opinion, can you please clarify the type of atrial fibrillation, if known? Paroxysmal Persistent Other, please specify Unable to determine Please document in your progress notes and discharge summary in order to capture severity of illness and risk of mortality. Include clinical findings that support your diagnosis. FYI: Press F11 to launch patient chart Place X here if this finding has no clinical significance, is not applicable or if you are not able to provide any additional documentation. KOKOD
[2017-06-06 11:55] VITALS: BMI 30.7
--- NOTE | 2017-06-06 12:11 | CDI ---
In responding to this query, please exercise your independent professional judgment. The [facility] Coding Staff and Clinical Documentation Specialists appreciate your assistance in clarifying documentation, maintaining compliance with coding guidelines, accurately documenting patients condition and capturing severity of illness. The fact that a question is asked does not imply that any particular answer is desired or expected. Communication forms are a method of clarifying documentation and are not made part of the Legal Health Record. Thank you in advance for your clarification. Last Revision, August 2015 Dana Dudley [address] [place] [address] Documentation Clarification Form Date: 06/06/2017 11:13:00 AM From: Linda Corcoran RN, CCDS Admit Date: 06/03/2017 8:46:00 AM Patient Name: Nazia Jordan Visit Number: [id number] Dr. Emma Park diagnosis of chronic anemia lacks specificity to accurately reflect your patients severity of condition and clarification is needed. 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 " Hemoglobin: 9.8/9.3/9.2/8.9 Hematocrit: 29.7/28.8/28.7/27.4 Treatment: Labs AM daily In order to capture the severity of condition, please clarify the type of anemia and etiology if known: Chronic blood loss anemia Iron deficiency anemia Other Chronic Disease Drug induced anemia Anemia due to malignancy Nutritional anemia Anemia of chronic kidney disease Unable to determine Other, please specify Please document in your progress notes and discharge summary in order to capture severity of illness and risk of mortality. Include clinical findings that support your diagnosis. FYI: Press F11 to launch patient chart. Place X here if this finding has no clinical significance, is not applicable or if you are not able to provide any additional documentation. ANSHU
[2017-06-06] MEDS: ATORVASTATIN 10 MG TAB PO SCH (20:34)
[2017-06-07 06:28] LABS: CH 31.5; CHCM 32.5; HCT 28.6 % (34.0-46.0); HDW 2.29; HGB 9.3 gm/dL (11.4-16.0); MCH 31.6 pg (25.0-35.0); MCHC 32.4 g/dL (31.0-37.0); MCV 97.6 fL (80.0-100.0); Macrocytosis Slight; Mean Platelet Volume 8.2; RBC 2.93 m/uL (3.80-5.40); RDW 15.9 % (11.5-15.5); WBC 7.1 k/uL (3.8-10.6)
[2017-06-07 06:53] LABS: Calcium 8.9 mg/dL (8.4-10.2)
[2017-06-07] MEDS: ENOXAPARIN 80 MG/0.8 ML SYRINGE SQ SCH (08:52)
[2017-06-07] MEDS: METOPROLOL TARTRATE 50 MG TAB PO SCH (08:52)
[2017-06-07] MEDS: LEVOTHYROXINE 25 MCG TAB PO SCH (08:52)
[2017-06-07] MEDS: GABAPENTIN 300 MG CAP PO SCH (08:52)
[2017-06-07] MEDS: CHOLECALCIFEROL 1,000 UNIT TAB PO SCH (08:53)
[2017-06-07] MEDS: ASPIRIN 81 MG CHEW PO SCH (08:53)
[2017-06-07] MEDS: CALCITRIOL 0.25 MCG CAP PO SCH (08:53)
[2017-06-07] MEDS ORDERED: NON-FORMULARY DRUG (Alendronate Sodium [Fosamax] 70 MG) PO SCH (09:00)
[2017-06-07] MEDS: HYDROcodone/APAP 7.5-325MG 1 EACH TAB PO PRN (09:53)
[2017-06-07 13:12] VITALS: BP 124/63; PULSE 112; RESP 16; TEMP 97.3
--- NOTE | 2017-06-07 14:07 | P.PN ---
Subjective Principal diagnosis: A. chente This is an 87-year-old female with past medical history congestive cardiac failure, coronary artery disease with prior stenting, hyperlipidemia, who presented to the hospital primarily with complaints of left hip pain. Orthopedic surgery was consulted and recommended nonweightbearing for 6-12 weeks and outpatient follow-up. Cardiology has been seeing the patient for atrial fibrillation. Patient has chronic persistent atrial fibrillation. Her heart rate this morning is in the 80s to 90s, blood pressure 122/60 96% on room air. Hemoglobin 9.3, platelet count 237, BUN 43, creatinine 1.4. Potassium 5.0. On Eliquis for anticoagulation, metoprolol tartrate 100 mg by mouth twice a day for heart rate control. Objective - Vital Signs Vital signs: Vital Signs Temp 97.3 F L 06/07/17 12:00 Pulse 112 H 06/07/17 12:00 Resp 16 06/07/17 12:00 BP 124/63 06/07/17 12:00 Pulse Ox 95 06/07/17 12:00 Intake & Output 06/06/17 06/07/17 06/07/17 18:59 06:59 18:59 Intake Total 520 360 Output Total 900 Balance 520 -540 Weight 71.5 kg 78 kg Intake: Intake, IV Titration 100 Amount cefTRIAXone 1,000 mg In 100 Sodium Chloride 0.9% 50 ml @ 100 mls/hr IVPB Q12HR [facility] Rx#:[id number] Oral 420 360 Output: Urine 900 Other: Voiding Method Indwelling Catheter Indwelling Catheter Indwelling Catheter # Voids 1 - Exam PHYSICAL EXAMINATION: HEENT: Head is atraumatic, normocephalic. Pupils equal, round. Neck is supple. There is no elevated jugular venous pressure. HEART EXAMINATION: Heart S1 and S2 irregularly irregular CHEST EXAMINATION: Lungs reveal diminished breath sounds bilaterally to the bases. ABDOMEN: Soft, nontender. Bowel sounds are heard. No organomegaly noted. EXTREMITIES: 2+ peripheral pulses with no evidence of peripheral edema and no calf tenderness noted. NEUROLOGIC patient is awake, alert and oriented -3. . - Labs CBC & Chem 7: 06/07/17 06:01 06/07/17 06:01 Labs: Abnormal Lab Results - Last 24 Hours (Table) 06/07/17 06/07/17 Range/Units 06: 06:01 RBC 2.93 L (3.80-5.40) m/uL Hgb 9.3 L (11.4-16.0) gm/dL Hct 28.6 L (34.0-46.0) % RDW 15.9 H (11.5-15.5) % BUN 43 H (7-17) mg/dL Creatinine 1.40 H (0.52-1.04) mg/dL Microbiology - Last 24 Hours (Table) 06/01/17 16:45 Blood Culture - Preliminary Blood No Growth after 120 hours 06/01/17 15:38 Blood Culture - Preliminary Blood No Growth after 120 hours Assessment and Plan (1) Chronic a-fib Status: Acute (2) Diastolic CHF, acute on chronic Status: Acute (3) Hypothyroid Status: Acute (4) Pneumonia Status: Acute (5) Anemia Status: Acute (6) Chronic kidney disease Status: Acute (7) Coronary artery disease Status: Acute (8) Hypothyroidism Status: Acute (9) Sacral fracture Status: Acute Plan: From cardiology's perspective, we will recommend to continue Eliquis for anticoagulation along with metoprolol tartrate for rate control. Follow-up appointment will be made in the office post discharge. DNP note has been reviewed, I agree with a documented findings and plan of care. Patient was seen and examined.
--- NOTE | 2017-06-07 15:58 | P.DS ---
Providers Date of admission: 06/03/17 08:46 Expected date of discharge: 06/07/17 Attending physician: DO Tejas Littlejohn CHAD Consults: 06/05/17 09:24 Consult Physician Routine Consulting Provider: Eleazar Bain Consult Reason/Comments: new onset a fib Do you want consulting provider notified?: Yes Primary care physician: Von Carter - Discharge Diagnosis(es) (1) Sacral fracture Current Visit: Yes Status: Acute (2) Persistent atrial fibrillation Current Visit: Yes Status: Acute (3) Anemia Current Visit: Yes Status: Chronic (4) Congestive heart failure Current Visit: Yes Status: Chronic (5) Chronic kidney disease Current Visit: Yes Status: Chronic Hospital Course: The patient is 87 year-old female with a past medical history of congestive heart failure, coronary artery disease status post stenting, and dyslipidemia who presented with complaints of left hip pain. In the emergency department she underwent an extensive evaluation. Her initial vital signs were within normal limits. Her x-rays showed a right sacral fracture. Laboratory analysis showed a slight anemia and elevated creatinine. She was given pain control started on IV fluids. She was admitted to the general medical floor for further monitoring and care. Orthopedic surgery was consulted and recommended nonweightbearing status for 6-12 weeks with outpatient follow-up. She developed a fever and was started on treatment for pneumonia. Physical therapy recommended subacute rehab and arrangements were being made to transfer the patient. She developed A fib with RVR on 06/05 she was transferred to [facility] care, given IV metoprolol X 2 and started on oral metoprolol, ECHO showed dilated LA but was otherwise unremarkable, TSH and Mg normal. SHe was started on lovenox. Cardiology is following. Her HR was better controlled on the morning of 06/06 but was still suboptimal and her metoprolol was increased. CXR revealed no PNA but did show a possible right should dislocation. Ortho was contacted and recommended conservative management patient was transitioned to Eliquis 2.5 mg PO BID for anticoagulation This discharge process took approximately 35 minutes Pertinent Studies: 2-D echocardiogram with ejection fraction of 55-60% with a severely dilated left atrium Bilateral lower Extremity venous Dopplers negative for DVT Patient Condition at Discharge: Stable Plan - Discharge Summary New Discharge Prescriptions: New Acetaminophen Tab [Tylenol] 650 mg PO Q6HR PRN tab PRN Reason: Mild Pain Or Fever > 100.5 Apixaban [Eliquis] 2.5 mg PO BID #60 tab Atorvastatin [Lipitor] 10 mg PO HS tab Metoprolol Tartrate [Lopressor] 100 mg PO BID #60 tablet oxyCODONE-APAP 5-325MG [Percocet 5-325 mg] 1 each PO Q4HR PRN tab PRN Reason: Severe Pain rOPINIRole HCL [Requip] 0.25 mg PO HS tab Continue Docusate Sodium [Stool Softener] 100 - 200 mg PO HS PRN PRN Reason: Constipation Aspirin 81 mg PO DAILY Nitroglycerin Sl Tabs [Nitrostat] 0.4 mg SUBLINGUAL Q5M PRN PRN Reason: Angina Gabapentin [Neurontin] 600 mg PO BID Alendronate Sodium [Fosamax] 70 mg PO WEEKLY Ammonium Lactate Lotion [Lac-Hydrin 12% Lotion] 1 applic TOPICAL BID PRN PRN Reason: Feet & Legs Calcitriol [Rocaltrol] 0.25 mcg PO DAILY Cholecalciferol (Vitamin D3) [Vitamin D3] 2,000 unit PO DAILY Furosemide [Lasix] 80 mg PO DAILY HYDROcodone/APAP 7.5-325MG [Rudd 7.5-325] 1 tab PO TID PRN PRN Reason: Pain Levothyroxine Sodium [Levoxyl] 25 mcg PO DAILY Potassium Chloride ER [K-Dur 10] 10 meq PO DAILY traMADol HCL [Ultram] 50 mg PO Q6HR PRN PRN Reason: Pain No Action Furosemide [Lasix] 40 mg PO DAILY@1500 Discharge Medication List Alendronate Sodium [Fosamax] 70 mg PO WEEKLY 03/04/14 [History] Aspirin 81 mg PO DAILY 03/04/14 [History] Docusate Sodium [Stool Softener] 100 - 200 mg PO HS PRN 03/04/14 [History] Gabapentin [Neurontin] 600 mg PO BID 03/04/14 [History] Nitroglycerin Sl Tabs [Nitrostat] 0.4 mg SUBLINGUAL Q5M PRN 03/04/14 [History] Ammonium Lactate Lotion [Lac-Hydrin 12% Lotion] 1 applic TOPICAL BID PRN [History] Calcitriol [Rocaltrol] 0.25 mcg PO DAILY 05/31/17 [History] Cholecalciferol (Vitamin D3) [Vitamin D3] 2,000 unit PO DAILY 05/31/17 [History] Furosemide [Lasix] 40 mg PO DAILY@1500 05/31/17 [History] Furosemide [Lasix] 80 mg PO DAILY 05/31/17 [History] HYDROcodone/APAP 7.5-325MG [Rudd 7.5-325] 1 tab PO TID PRN 05/31/17 [History] Levothyroxine Sodium [Levoxyl] 25 mcg PO DAILY 05/31/17 [History] Potassium Chloride ER [K-Dur 10] 10 meq PO DAILY 05/31/17 [History] traMADol HCL [Ultram] 50 mg PO Q6HR PRN 05/31/17 [History] Acetaminophen Tab [Tylenol] 650 mg PO Q6HR PRN tab 06/07/17 [Rx] Apixaban [Eliquis] 2.5 mg PO BID #60 tab 06/07/17 [Rx] Atorvastatin [Lipitor] 10 mg PO HS tab 06/07/17 [Rx] Metoprolol Tartrate [Lopressor] 100 mg PO BID #60 tablet 06/07/17 [Rx] oxyCODONE-APAP 5-325MG [Percocet 5-325 mg] 1 each PO Q4HR PRN tab 06/07/17 [Rx] rOPINIRole HCL [Requip] 0.25 mg PO HS tab 06/07/17 [Rx] Follow up Appointment(s)/Referral(s): Fermin Pacheco PAC [PHYSICIAN SIGNAL AND COMMUNICATIONS MAINTAINER] - 4 Weeks (Patient may follow-up with Fermin Pacheco PA-C or Dr. Greg Baker at [facility] in 3-4 weeks following discharge. ) Von Carter DO [Primary Care Provider] - 1-2 days Discharge Disposition: TRANSFER TO SNF/ECF
[2017-06-07] MEDS: MORPHINE SULFATE 4 MG/ML SYRINGE IV PRN (17:15)
[2017-06-07] MEDS ORDERED: APIXABAN 2.5 MG TABLET PO SCH (21:00)
== END 2017-06-07 20:30 | DRG 551 ==
LOC: EC 05:15 → 4MS4W 08:36 → OBSVTOIN 06-03 08:46 → 4MS4W 06-04 14:42 → 6SEL 06-05 09:11
PROVIDERS: ADMIT Internal Medicine; ATTEND Internal Medicine
DX: S32.19XA Other fracture of sacrum, initial encounter for closed fracture (principal); J18.9 Pneumonia, unspecified organism; N17.9 Acute kidney failure, unspecified; I13.0 Hypertensive heart and chronic kidney disease with heart failure and stage 1 through stage 4 chronic kidney disease, or unspecified chronic kidney disease; I48.1 Persistent atrial fibrillation; L97.921 Non-pressure chronic ulcer of unspecified part of left lower leg limited to breakdown of skin; I50.32 Chronic diastolic (congestive) heart failure; I83.029 Varicose veins of left lower extremity with ulcer of unspecified site; G25.81 Restless legs syndrome; N18.3 Chronic kidney disease, stage 3 (moderate); E03.9 Hypothyroidism, unspecified; D64.9 Anemia, unspecified; I73.9 Peripheral vascular disease, unspecified; K21.9 Gastro-esophageal reflux disease without esophagitis; E78.5 Hyperlipidemia, unspecified; G89.29 Other chronic pain; I25.2 Old myocardial infarction; I25.10 Atherosclerotic heart disease of native coronary artery without angina pectoris; M10.9 Gout, unspecified; M19.91 Primary osteoarthritis, unspecified site; Z79.82 Long term (current) use of aspirin; Z79.83 Long term (current) use of bisphosphonates; Z79.02 Long term (current) use of antithrombotics/antiplatelets; Z79.899 Other long term (current) drug therapy; Z90.710 Acquired absence of both cervix and uterus; Z86.14 Personal history of Methicillin resistant Staphylococcus aureus infection; Z95.5 Presence of coronary angioplasty implant and graft; Z87.11 Personal history of peptic ulcer disease; Z98.1 Arthrodesis status; Z88.2 Allergy status to sulfonamides; Z91.041 Radiographic dye allergy status; W19.XXXA Unspecified fall, initial encounter
CPT/HCPCS: 36415; 51702; 71010; 72100; 72220; 73502; 80048; 80053; 81001; 82550; 82553; 83735; 84100; 84443; 84484; 85025; 85027; 85610; 87040; 93005; 93306; 93970; 96372; 99285